=== PATIENT | female | born 1990 | race Caucasian/White ===

== ENCOUNTER 2017-02-21 04:44 | Emergency (ER) | payer SELFPAY ==
--- NOTE | 2017-02-21 04:59 | ER Document Report ---
ED GI/ - General Chief Complaint: Flank Pain Stated Complaint: BACK PAIN Time Seen by Provider: 02/21/17 04:56 Mode of Arrival: Ambulatory Information source: Patient Notes: Is a 27-year-old female who presents to the ER today for left flank pain 3 days. Patient states that it hurts worse to move. She denies any dysuria or hematuria, history of kidney stones. She admits to some fevers and chills yesterday but did not take her temperature. She denies that the pain radiates anywhere. TRAVEL OUTSIDE OF THE [place] IN LAST 30 DAYS: No - Related Data Allergies/Adverse Reactions: No Known Allergies Allergy (Verified 12/16/12 06:28) Past Medical History - General Information source: Patient - Social History Smoking Status: Current Every Day Smoker Family History: Reviewed & Not Pertinent Patient has suicidal ideation: No Patient has homicidal ideation: No Renal/ Medical History: Reports: Hx Ovarian Cysts. Denies: Hx Peritoneal Dialysis - Immunizations Hx Diphtheria, Pertussis, Tetanus Vaccination: No Review of Systems - Review of Systems Constitutional: See HPI EENT: No symptoms reported Cardiovascular: No symptoms reported Respiratory: No symptoms reported Gastrointestinal: No symptoms reported Genitourinary: See HPI Female Genitourinary: No symptoms reported Musculoskeletal: No symptoms reported Skin: No symptoms reported Hematologic/Lymphatic: No symptoms reported Neurological/Psychological: No symptoms reported Physical Exam - Vital signs Vitals: Temp Pulse Resp BP Pulse Ox 97.6 F 89 18 125/71 97 02/21/17 04:45 02/21/17 04:45 02/21/17 04:45 02/21/17 04:45 02/21/17 04:45 - Notes Notes: PHYSICAL EXAMINATION: GENERAL: uncomfortable, holding left flank, but in no acute distress. HEAD: Atraumatic, normocephalic. EYES: Pupils equal round and reactive to light, extraocular movements intact, sclera anicteric, conjunctiva are normal. NECK: Normal range of motion, supple without lymphadenopathy LUNGS: CTAB and equal. No wheezes rales or rhonchi. HEART: Regular rate and rhythm without murmurs ABDOMEN: Soft, no tenderness. No guarding, no rebound BACK: no vertebral tenderness, normal ROM GI/: left CVA tenderness EXTREMITIES: Normal range of motion, no pitting edema. No cyanosis. NEUROLOGICAL: Cranial nerves grossly intact. Normal sensory/motor exams. PSYCH: Normal mood, normal affect. SKIN: Warm, Dry, normal turgor, open and scabbed sores all over body including the face, extremities, trunk Course - Re-evaluation Re-evalutation: 02/21/17 06:15 The white count 12.3, moderate leukocytes on her urinalysis with some white blood cells. I will treat her for UTI today. There is no blood on her urinalysis indicating kidney stone. Patient is covered in sores all over her body and admits to doing meth. - Vital Signs Vital signs: Temp Pulse Resp BP Pulse Ox 97.6 F 89 18 125/71 97 02/21/17 04:45 02/21/17 04:45 02/21/17 04:45 02/21/17 04:45 02/21/17 04:45 - Laboratory Result Diagrams: 02/21/17 05:34 02/21/17 05:34 Laboratory results interpreted by me: 02/21/17 02/21/17 02/21/17 04:59 05:34 05:34 WBC 12.3 H MCH 33.6 H Absolute Neutrophils 8.3 H Glucose 114 H AST 44 H ALT 73 H Ur Leukocyte Esterase MODERATE H Discharge - Discharge Clinical Impression: multiple skin sores UTI (urinary tract infection) Qualifiers: Urinary tract infection type: site unspecified Hematuria presence: without hematuria Qualified Code(s): N39.0 - Urinary tract infection, site not specified Condition: Stable Disposition: HOME, SELF-CARE Instructions: Urinary Tract Infection ([facility]) Additional Instructions: Return immediately for any new or worsening symptoms. Follow up with primary care provider, call tomorrow to make followup appointment. Prescriptions: Ciprofloxacin HCl [Cipro 500 mg Tablet] 500 mg PO BID #20 tablet Ibuprofen [Motrin 800 mg Tablet] 800 mg PO Q8H PRN #30 tab PRN Reason:
[2017-02-21] MEDS ORDERED: KETOROLAC TROMETHAMINE 60 MG/2 ML SDV IM ONE (05:10)
[2017-02-21 05:33] LABS: APPEARANCE,URINE SLIGHTLY-CLOUDY; BILIRUBIN,URINE NEGATIVE (NEGATIVE); GLUCOSE, URINE NEGATIVE (NEGATIVE); KETONES,URINE NEGATIVE (NEGATIVE); LEUKOCYTE ESTERASE,URINE MODERATE (NEGATIVE); NITRITE,URINE NEGATIVE (NEGATIVE); PROTEIN,URINE NEGATIVE (NEGATIVE); URINE SPECIFIC GRAVITY 1.011; UROBILINOGEN,URINE NEGATIVE mg/dL (<2.0)
[2017-02-21 05:41] LABS: ABSOLUTE BASOPHILS # (AUTO) 0.1 10^3/uL (0.0-0.2); ABSOLUTE EOSINOPHILS # (AUTO) 0.2 10^3/uL (0.0-0.6); ABSOLUTE LYMPHOCYTES (AUTO) 2.6 10^3/uL (0.5-4.7); ABSOLUTE MONOCYTES (AUTO) 1.2 10^3/uL (0.1-1.4); ABSOLUTE NEUT (AUTO) 8.3 10^3/uL (1.7-8.2); BASOPHILS % (AUTO) 0.5 % (0-2); EOSINOPHILS % (AUTO) 1.6 % (0-6); HEMATOCRIT 36.7 % (36.0-47.0); HEMOGLOBIN 12.8 g/dL (12.0-15.5); HGB HCT DIFFERENCE 1.7; LYMPHOCYTES % (AUTO) 21.2 % (13-45); MEAN CORPUSCULAR HEMOGLOBIN 33.6 pg (27.0-33.4); MEAN CORPUSCULAR HGB CONC 34.8 g/dL (32.0-36.0); MEAN CORPUSCULAR VOLUME 97 fl (80-97); MONOCYTES % (AUTO) 9.4 % (3-13); RED CELL DISTRIBUTION WIDTH 12.8 % (11.5-14.0); SEGMENTED NEUTROPHILS % (AUTO) 67.3 % (42-78); WHITE BLOOD COUNT 12.3 10^3/uL (4.0-10.5)
[2017-02-21 05:55] LABS: ALANINE AMINOTRANSFERASE 73 U/L (9-52); ALBUMIN 4.2 g/dL (3.5-5.0); ALKALINE PHOSPHATASE 55 U/L (38-126); ANION GAP 10 (5-19); ASPARTATE AMINO TRANSFERASE 44 U/L (14-36); BILIRUBIN,DIRECT 0.4 mg/dL (0.0-0.4); BILIRUBIN,TOTAL 0.4 mg/dL (0.2-1.3); BLOOD UREA NITROGEN 7 mg/dL (7-20); CALCIUM 9.6 mg/dL (8.4-10.2); CARBON DIOXIDE 26 mmol/L (22-30); CHLORIDE 103 mmol/L (98-107); CREATININE RESULT 0.65 mg/dL (0.52-1.25); GLUCOSE 114 mg/dL (75-110); POTASSIUM 3.7 mmol/L (3.6-5.0); SODIUM 139.2 mmol/L (137-145); TOTAL PROTEIN 7.6 g/dL (6.3-8.2)
[2017-02-21 07:22] VITALS: BP 114/65
== END 2017-02-21 07:09 | disposition home or self-care (01) ==
LOC: ER 04:44
DX: N39.0 Urinary tract infection, site not specified (principal); L98.499 Non-pressure chronic ulcer of skin of other sites with unspecified severity; R68.83 Chills (without fever); F17.200 Nicotine dependence, unspecified, uncomplicated; Z87.442 Personal history of urinary calculi
CPT/HCPCS: 99284; 36415; 85025; 81025; 80053; 81001; J1885

== ENCOUNTER 2017-06-29 15:02 | Emergency (ER) | payer SELFPAY ==
--- NOTE | 2017-06-29 16:09 | ER Document Report ---
ED General - General Chief Complaint: Puncture Wound to Foot Stated Complaint: LEFT FOOT INJURY Time Seen by Provider: 06/29/17 15:20 Mode of Arrival: Ambulatory Information source: Patient Notes: Patient is a 27-year-old female who comes to emergency room with a major complaint of foreign body in the left heel. She also has multiple complaints about skin lesions across her body and about upper respiratory type symptoms and IV drug use. Does state her primary concern is the foreign body in the left foot heel states his been her probably 4-5 days. She stepped on a glass and she believes that is what is in there. She states that there is a patient can feel. She is attempted to pull it out herself with no luck. Patient then starts discussing wounds on her body admits to IV drug use states that she has not done methamphetamines for approximately 8 months but she does cocaine on a regular basis all of which is IV. And she also admits to sharing needles. Patient has a congested runny nose cough complaint as well think she has bronchitis. TRAVEL OUTSIDE OF THE [place] IN LAST 30 DAYS: No - HPI Patient complains to provider of: Left foreign body in heel Onset: Other - 5 days Onset/Duration: Sudden, Worse Quality of pain: Sharp Severity: Moderate Pain Level: 3 Context: Walking barefoot broken glass Associated symptoms: Other - On associated symptoms though are cough congestion runny nose. These are additional symptoms Exacerbated by: Standing, Movement, Walking Relieved by: Denies Similar symptoms previously: Yes Recently seen / treated by doctor: No Notes: Patient states she does have a history of going to the health department for sexual transmitted diseases. This is approximately 1 year ago same male partner he contracted chlamydia and patient went to health department to have treatment. - Related Data Allergies/Adverse Reactions: No Known Allergies Allergy (Verified 06/29/17 15:03) Past Medical History - General Information source: Patient Last Menstrual Period: Now - Social History Smoking Status: Current Every Day Smoker Cigarette use (# per day): Yes - 1-2 packs a day Chew tobacco use (# tins/day): No Smoking Education Provided: Yes Frequency of alcohol use: Heavy - Patient states she does also drink heavily but has cut back. Drug Abuse: Cocaine, Heroin, Methamphetamine Occupation: Unemployed Lives with: Spouse/Significant other Family History: Reviewed & Not Pertinent Patient has suicidal ideation: No Patient has homicidal ideation: No Pulmonary Medical History: Reports: Hx Bronchitis Renal/ Medical History: Reports: Hx Ovarian Cysts. Denies: Hx Peritoneal Dialysis - Immunizations Hx Diphtheria, Pertussis, Tetanus Vaccination: No Review of Systems - Review of Systems Constitutional: No symptoms reported EENT: No symptoms reported, Nose congestion, Sinus pressure Cardiovascular: No symptoms reported Respiratory: No symptoms reported Gastrointestinal: No symptoms reported Genitourinary: No symptoms reported Female Genitourinary: No symptoms reported Musculoskeletal: Other - Foreign body left foot heel Skin: Lesions, Rash Hematologic/Lymphatic: No symptoms reported Neurological/Psychological: No symptoms reported -: Yes All other systems reviewed and negative Physical Exam - Vital signs Vitals: Temp Pulse Resp BP Pulse Ox 97.9 F 114 H 18 143/94 H 98 06/29/17 15:09 06/29/17 15:09 06/29/17 15:09 06/29/17 15:09 06/29/17 15:09 Interpretation: Hypertensive, Tachycardic - General General appearance: Anxious In distress: None - HEENT Head: Normocephalic, Atraumatic Eyes: Normal Conjunctiva: Injected Tympanic membrane: Bulging. No: Normal, Hemotympanum, Injected, Loss of landmarks, Perforation, Purulent effusion, Retracted, Serous effusion, Other Sinus: Frontal, Maxillary Nasal: Purulent discharge Mouth/Lips: Normal Mucous membranes: Normal, Moist Pharynx: Post nasal drainage Neck: Normal - Respiratory Respiratory status: No respiratory distress Chest status: Nontender Breath sounds: Normal. No: Decreased air movement, Nonproductive cough, Productive cough, Rales, Rhonchi, Stridor, Wheezing, Other - Cardiovascular Rhythm: Tachycardia Murmur: No - Extremities General upper extremity: Normal inspection, Normal ROM, Other - Multiple skin lesions across the upper and lower body General lower extremity: Tender, Other - Examination patient's left heel shows there to be a foreign body appearance in the bottom of the left heel more towards the lateral side. There is an area that is approximately a centimeter with broken skin very hard callus as well with what appears to be by touch a foreign body that is embedded. It is not visualized only felt. There is extreme tenderness to palpation around the wound. There is no sign of lymphangitis at this time. Foot: Tender, Other - Look under general lower extremity, - Neurological Neuro grossly intact: Yes Cognition: Normal Orientation: AAOx4 [place] Coma Scale Eye Opening: Spontaneous [place] Coma Scale Verbal: Oriented [place] Coma Scale Motor: Obeys Commands Mario Coma Scale Total: 15 Speech: Normal - Skin Skin Temperature: Warm Skin Color: Erythema Skin irregularity: Lesion, Rash, other - Physical examination the patient externally shows she has wide range of lesions across her entire body including face of erythematous irregular boarders. Course - Vital Signs Vital signs: Temp Pulse Resp BP Pulse Ox 97.9 F 114 H 18 143/94 H 98 06/29/17 15:09 06/29/17 15:09 06/29/17 15:09 06/29/17 15:09 06/29/17 15:09 - Transfer of Care Notes: 06/29/17 17:33 As stated patient does use IV drug and she is upfront about doing this. She has states that she has not had any methamphetamine for about 8 months. She does admit openly using cocaine. She last shot was in 24 hours ago. She has these lesions as described all over her body. I informed her that this was a condition that goes along with IV drug use and that the antibiotics were used should help her. Patient was not satisfied with this answer I went in to Dr. Jefferson he came to the room and examined patient as well listening to her story. He examined all the lesions as well and came to the same conclusion since patient had an area in her back that she cannot reach from scratching was clear. He informed her we put her on antibiotics that will help with this condition as I had told her. I did the I&D and removed a small 4 mm object from the left heel. 06/29/17 17:36 06/29/17 17:39 As the procedure goes I cleaned the area with Betadine waited a few seconds and then injected 1-1/2 mL's of 1% lidocaine into the wound itself. I raised a nice large well waited approximately 3 minutes until the area was anesthetized and then took splinter forceps I grabbed hold of the piece that was sticking out of the wound and removed approximately a 4 mm piece of a dark substance. I believe it to be a piece of metal although patient swears she stepped on glass. We applied a Band-Aid to the area after removing and patient was satisfied with the procedure. Removed a 4 mm object therefore do not feel we need to re-x -ray the area. And patient wants to leave. Discharge - Discharge Clinical Impression: Impetigo any site, H/O retained foreign body fully removed, Staphylococcal infection of skin, IVDU (intravenous drug user) Condition: Good Disposition: HOME, SELF-CARE Instructions: Antibiotic Ointment Protection ([facility]), Bactroban Ointment ([facility]), Cephalexin ([facility]), Impetigo ([facility]), Soap Cleansing ([facility]), Tetanus Immunization Given ([facility]) Additional Instructions: Home and take a shower or wash all areas of the body. Keep the wound on the left heel covered and apply antibiotic cream. I have also written you for some Bactroban ointment that she may use on your lesions as well. Apply as directed. Take all of the antibiotics. I am also including a medication called Diflucan since her in 2 strong antibiotics and this will help you to stop from getting a yeast infection. As Dr. Jefferson stated this is a a staph infection caused by picking/IV drug use causing irritations under the skin. If you take all the antibiotics that should help clear up. As always he remained from IV injecting it would be much better. Should you have any concerns or problems return to ER for a recheck. Prescriptions: Cephalexin Monohydrate [Keflex 500 mg Capsule] 500 mg PO QID #40 capsule Fluconazole [Diflucan] 150 mg PO ONCE PRN #1 tablet PRN Reason: Sulfamethoxazole/Trimethoprim [Bactrim Ds Tablet] 1 each PO BID #28 tablet Forms: Elevated Blood Pressure, Smoking Cessation Education
--- NOTE | 2017-06-29 16:27 | RADIOLOGY REPORT (SQ) ---
EXAM DESCRIPTION: FOOT RIGHT COMPLETE COMPLETED DATE/TIME: 06/29/2017 4:14 pm REASON FOR STUDY: Foreign body in heel COMPARISON: 12/16/2012. NUMBER OF VIEWS: Three views. TECHNIQUE: AP, lateral and oblique radiographic images acquired of the right foot. LIMITATIONS: None. FINDINGS: MINERALIZATION: Normal. BONES: No acute fracture or dislocation. No worrisome bone lesions. JOINTS: No effusions. SOFT TISSUES: Posterior soft tissue swelling. On the oblique view there is a linear radiopaque forei gn object measuring 4 mm. OTHER: No other significant finding. IMPRESSION: 4 MM RADIOPAQUE FOREIGN OBJECT IN THE POSTERIOR SOFT TISSUES WITH ASSOCIATED SOFT TISSUE SWELLING. NO SIGNIFICANT BONY FINDINGS. TECHNICAL DOCUMENTATION: JOB ID: [id number] [employer]- All Rights Reserved
[2017-06-29] MEDS ORDERED: LIDOCAINE 1% INJ-PF (10 MG/ML) 30 ML SDV INJ ONE (16:29)
[2017-06-29] MEDS ORDERED: SULFAMETHOXAZOLE/TRIMETHOPRIM 800-160 MG TABLET PO ONE (17:34)
[2017-06-29 18:10] VITALS: BP 140/88
== END 2017-06-29 17:55 | disposition home or self-care (01) ==
LOC: ER 15:02 → EEVIPCON 15:02 → ER 17:55
PROC: 0HCNXZZ Extirpation of Matter from Left Foot Skin, External Approach (ICD-10-PCS; principal; 2017-06-29)
DX: L01.00 Impetigo, unspecified (principal); B95.7 Other staphylococcus as the cause of diseases classified elsewhere; S91.342A Puncture wound with foreign body, left foot, initial encounter; R09.81 Nasal congestion; R09.89 Other specified symptoms and signs involving the circulatory and respiratory systems; R05 Cough; F14.10 Cocaine abuse, uncomplicated; W22.8XXA Striking against or struck by other objects, initial encounter; F17.210 Nicotine dependence, cigarettes, uncomplicated
CPT/HCPCS: 99283; 73630; 10120; J3490

== ENCOUNTER 2018-05-11 14:05 | Emergency (ER) | payer SELFPAY ==
[2018-05-11 14:38] VITALS: BP 96/70
--- NOTE | 2018-05-11 15:15 | ER Document Report ---
ED Medical Screen (RME) - General Chief Complaint: Abscess Stated Complaint: EAR PAIN Time Seen by Provider: 05/11/18 15:13 Notes: 28 years old female presents today with an unexplained rash which is spreading, involving head neck shoulder and chest. She states that she she has IV needle to use IV drugs with her boyfriend and her girlfriend too. Apparently the boyfriend was diagnosed with endocarditis, versus 10 bacteria which she does not know. He is on vancomycin IV. She was concerned she must be having the same resistant organism therefore presented to the ED. TRAVEL OUTSIDE OF THE [place] IN LAST 30 DAYS: No - Related Data Allergies/Adverse Reactions: No Known Allergies Allergy (Verified 05/11/18 14:07) Past Medical History Pulmonary Medical History: Reports: Hx Bronchitis Renal/ Medical History: Reports: Hx Ovarian Cysts. Denies: Hx Peritoneal Dialysis - Immunizations Hx Diphtheria, Pertussis, Tetanus Vaccination: No Physical Exam - Vital signs Vitals: Temp Pulse Resp BP Pulse Ox 98.6 F 95 16 96/70 L 100 05/11/18 14:34 05/11/18 14:34 05/11/18 14:34 05/11/18 14:34 05/11/18 14:34 Course - Vital Signs Vital signs: Temp Pulse Resp BP Pulse Ox 98.6 F 95 16 96/70 L 100 05/11/18 14:34 05/11/18 14:34 05/11/18 14:34 05/11/18 14:34 05/11/18 14:34
[2018-05-11 15:45] LABS: ABSOLUTE BASOPHILS # (AUTO) 0.1 10^3/uL (0.0-0.2); ABSOLUTE EOSINOPHILS # (AUTO) 0.4 10^3/uL (0.0-0.6); ABSOLUTE LYMPHOCYTES (AUTO) 3.2 10^3/uL (0.5-4.7); ABSOLUTE MONOCYTES (AUTO) 0.8 10^3/uL (0.1-1.4); ABSOLUTE NEUT (AUTO) 5.5 10^3/uL (1.7-8.2); BASOPHILS % (AUTO) 0.8 % (0-2); EOSINOPHILS % (AUTO) 3.7 % (0-6); HEMATOCRIT 40.8 % (36.0-47.0); HEMOGLOBIN 13.9 g/dL (12.0-15.5); LYMPHOCYTES % (AUTO) 32.4 % (13-45); MEAN CORPUSCULAR HEMOGLOBIN 32.1 pg (27.0-33.4); MEAN CORPUSCULAR HGB CONC 34.1 g/dL (32.0-36.0); MEAN CORPUSCULAR VOLUME 94 fl (80-97); MONOCYTES % (AUTO) 8.1 % (3-13); PLATELET COUNT 285 10^3/uL (150-450); RED BLOOD COUNT 4.34 10^6/uL (3.72-5.28); RED CELL DISTRIBUTION WIDTH 12.8 % (11.5-14.0); TOTAL CELLS COUNTED % (AUTO) 100 %
[2018-05-11] MEDS ORDERED: CEFTRIAXONE INJ 1000 MG VIAL IM ONE (16:10)
[2018-05-11] MEDS ORDERED: LIDOCAINE 1% INJ-PF (10 MG/ML) 30 ML SDV INJ ONE (16:10)
--- NOTE | 2018-05-11 16:14 | ER Document Report ---
ED General - General Chief Complaint: Abscess Stated Complaint: EAR PAIN Time Seen by Provider: 05/11/18 15:13 TRAVEL OUTSIDE OF THE [place] IN LAST 30 DAYS: No - HPI Notes: Patient is a 28-year-old female with an active history of IV drug abuse who presents to the ED complaining of red painful lesions on her face, neck, left ear, arms, and chest that have been intermittent over the past 1-2 years. Patient states that she has been on multiple antibiotics, but only had improvement with what other medicine she had when she was here in June. Patient states that her current lesions to her head and neck area developed over the last couple days. Patient is otherwise eating and drinking without any difficulties. She is urinating normally and having normal bowel movements. Patient states that she wanted to catch these issues sooner than later as her BF was on Vanc for endocarditis. Denies drug allergies. Denies any headache, fever, neck pain, changes in vision/speech/mentation/hearing, URI, sore throat, chest pain, palpitations, syncope, cough, shortness of breath, wheeze, dyspnea, abdominal pain, nausea/vomiting/diarrhea, urinary retention, dysuria, hematuria , loss of control of bowel or bladder, numbness/tingling, muscle paralysis/ weakness. - Related Data Allergies/Adverse Reactions: No Known Allergies Allergy (Verified 05/11/18 14:07) Past Medical History - Social History Smoking Status: Current Every Day Smoker Frequency of alcohol use: Occasional Drug Abuse: Other Family History: Reviewed & Not Pertinent Patient has suicidal ideation: No Patient has homicidal ideation: No Pulmonary Medical History: Reports: Hx Bronchitis Renal/ Medical History: Reports: Hx Ovarian Cysts. Denies: Hx Peritoneal Dialysis - Immunizations Hx Diphtheria, Pertussis, Tetanus Vaccination: No Review of Systems - Review of Systems -: Yes All other systems reviewed and negative Physical Exam - Vital signs Vitals: Temp Pulse Resp BP Pulse Ox 98.6 F 95 16 96/70 L 100 05/11/18 14:34 05/11/18 14:34 05/11/18 14:34 05/11/18 14:34 05/11/18 14:34 - Notes Notes: PHYSICAL EXAMINATION: GENERAL: Well-appearing, well-nourished and in no acute distress. A&Ox4. Answers questions appropriately. HEAD: Atraumatic, normocephalic. EYES: Pupils equal round and reactive to light, extraocular movements intact, sclera anicteric, conjunctiva are normal. ENT: EAC clear b/l. TM's intact b/l without erythema, fluid, or perforation. Nares patent and without discharge. oropharynx clear without exudates. No tonsilar hypertrophy or erythema. Moist mucous membranes. No sinus tenderness. NECK: Normal range of motion, supple without lymphadenopathy LUNGS: Breath sounds clear to auscultation bilaterally and equal. No wheezes rales or rhonchi. HEART: Regular rate and rhythm without murmurs, rubs, gallops. ABDOMEN: Soft, nontender, nondistended abdomen. No guarding, no rebound. No masses appreciated. Normal bowel sounds present. No CVA tenderness bilaterally. Musculoskeletal: FROM to passive/active. Strength 5+/5. Extremities: No cyanosis, clubbing, or edema b/l. Peripheral pulses 2+. Capillary refill less than 3 seconds. NEUROLOGICAL: Cranial nerves grossly intact. Normal speech, normal gait. Normal sensory, motor exams PSYCH: Normal mood, normal affect. SKIN: there are multiple erythemic macular areas to the face, neck, left ear, chest, and arms b/l. There is no induration or fluctuance with these lesions. No streaks or purulence noted. + mild tenderness associated. Course - Re-evaluation Re-evalutation: 05/11/18 16:13 Patient is an afebrile, well-hydrated, 28-year-old female who presents to the ED with cellulitic lesions, possible MRSA involvement. Vitals are acceptable without any significant tachycardia, tachypnea, or hypoxia. PE is otherwise unremarkable. I did have Dr. Gregory evaluate the patient as well who agrees with assessment and plan. No labs or imaging warranted at this time. Patient is nontoxic-appearing and is tolerating p.o. without difficulties. Wound culture was obtained at triage. We will send her home with a prescription for Keflex and Bactrim. We suspect that her issues stem from IV drug abuse. Also send her home with a prescription for mupirocin. Conservative measures otherwise for symptoms. No incision and drainage is warranted at this time. Recheck with PCM in 2-3 days. Return to the ED with any worsening/concerning symptoms otherwise as reviewed in discharge. Patient is in agreement. - Vital Signs Vital signs: Temp Pulse Resp BP Pulse Ox 98.6 F 95 16 96/70 L 100 05/11/18 14:34 05/11/18 14:34 05/11/18 14:34 05/11/18 14:34 05/11/18 14:34 - Laboratory Result Diagrams: 05/11/18 15:20 Discharge - Discharge Clinical Impression: Cellulitis Qualifiers: Site of cellulitis: unspecified site Qualified Code(s): L03.90 - Cellulitis, unspecified Condition: Stable Disposition: HOME, SELF-CARE Instructions: Cephalexin ([facility]), Trimethoprim-Sulfa ([facility]), Cellulitis ([facility]) Additional Instructions: Keep the skin clean Wash with soap and water Tylenol/ibuprofen if needed Triple antibiotic ointment daily Take medication as directed Monitor for any worsening symptoms Stop using IV drugs (this will help prevent these skin infections) Recheck with your PCM in 2-3 days Consider consult with Dermatology for ongoing/worsening symptoms Return to the ED with any worsening symptoms and/or development of fever, headache, chest pain, palpitations, syncope, shortness of breath, trouble breathing, abdominal pain, n/v/d, abscess, purulent discharge, red streaks, worsening swelling, or other worsening symptoms that are concerning to you. Prescriptions: Cephalexin Monohydrate [Keflex 500 mg Capsule] 500 mg PO QID #40 capsule Sulfamethoxazole/Trimethoprim [Bactrim Ds Tablet] 1 each PO BID #28 tablet Forms: Smoking Cessation Education Referrals: DARIEN PARKER DO [ACTIVE STAFF] - Follow up as needed
== END 2018-05-11 16:48 | disposition home or self-care (01) ==
LOC: ER 14:05
DX: L03.211 Cellulitis of face (principal); H60.12 Cellulitis of left external ear; L03.221 Cellulitis of neck; L03.119 Cellulitis of unspecified part of limb; L03.313 Cellulitis of chest wall; F19.10 Other psychoactive substance abuse, uncomplicated; F17.200 Nicotine dependence, unspecified, uncomplicated
CPT/HCPCS: 99283; 96372; 36415; 85025; 87070; J3490; J0696

== ENCOUNTER 2018-11-15 13:33 | Inpatient (IN) | payer SELFPAY ==
[2018-11-15] MEDS ORDERED: MUPIROCIN 2% OINTMENT 22 GM TP ONE (14:14)
[2018-11-15] MEDS ORDERED: VANCOMYCIN HCL INJ 1000 MG VIAL IV ONE (14:14)
--- NOTE | 2018-11-15 15:21 | RADIOLOGY REPORT (SQ) ---
"EXAM DESCRIPTION: CT FACIAL AREA WITH COMPLETED DATE/TIME: 11/15/2018 3:04 pm REASON FOR STUDY: facial/orbital cellulitis COMPARISON: 2012 TECHNIQUE: Post contrast images through the facial bones and orbits windowed for bone and soft tissu e. Additional coronal and sagittal reconstructed images reviewed. All images stored on PACS. All CT scanners at this facility use dose modulation, iterative reconstruction, and/or weight based d osing when appropriate to reduce radiation dose to as low as reasonably achievable (ALARA). [facility]: Dose Right [facility]: CareDose [facility]: Dose Right [facility]: Teradose 4D [facility]: AQH CONTRAST TYPE AND DOSE: contrast/concentration: Isovue 350.00 mg/ml; Total Contrast Delivered: 75.0 ml; Total Saline Delivered: 55.0 ml RENAL FUNCTION: None required. The patient is less than 50 years old. RADIATION DOSE: CT Rad equipment meets quality standard of care and radiation dose reduction techniq ues were employed. CTDIvol: 30.4 mGy. DLP: 562 mGy-cm. . LIMITATIONS: None. FINDINGS: FACIAL BONES: No fracture or bone lesion. ORBITS: Intact. No fracture. Symmetric intact globes and retroorbital soft tissues. PARANASAL SINUSES: Fluid in the right frontal sinus and nasofrontal recess. SOFT TISSUES: Diffuse subcutaneous inflammation both sides of the face. INFERIOR BRAIN: Limited view. No acute findings. OTHER: No other significant finding. IMPRESSION: 1. Diffuse cellulitis. No abscess. 2. Right frontal sinusitis. TECHNICAL DOCUMENTATION: JOB ID: [id number] Quality ID # [id number]: Final reports with documentation of one or more dose reduction techniques (e.g., Au tomated exposure control, adjustment of the mA and/or kV according to patient size, use of iterative reconstruction technique) 2010 [employer] | [employer]- All Rights Reserved Reading location - IP/workstation name: [email or web address]"
[2018-11-15] MEDS ORDERED: NORMAL SALINE 1000 ML 1,000 ML IV ONE (16:03)
[2018-11-15 16:15] LABS: ABSOLUTE EOSINOPHILS # (AUTO) 0.2 10^3/uL (0.0-0.6); ABSOLUTE LYMPHOCYTES (AUTO) 1.9 10^3/uL (0.5-4.7); ABSOLUTE MONOCYTES (AUTO) 0.7 10^3/uL (0.1-1.4); ABSOLUTE NEUT (AUTO) 6.9 10^3/uL (1.7-8.2); BASOPHILS % (AUTO) 0.2 % (0-2); EOSINOPHILS % (AUTO) 2.3 % (0-6); HEMATOCRIT 39.2 % (36.0-47.0); HEMOGLOBIN 13.7 g/dL (12.0-15.5); LYMPHOCYTES % (AUTO) 19.1 % (13-45); MEAN CORPUSCULAR HEMOGLOBIN 31.7 pg (27.0-33.4); MEAN CORPUSCULAR VOLUME 91 fl (80-97); MONOCYTES % (AUTO) 7.6 % (3-13); PLATELET COUNT 219 10^3/uL (150-450); RED BLOOD COUNT 4.34 10^6/uL (3.72-5.28); RED CELL DISTRIBUTION WIDTH 12.3 % (11.5-14.0); SEGMENTED NEUTROPHILS % (AUTO) 70.8 % (42-78); TOTAL CELLS COUNTED % (AUTO) 100 %; WHITE BLOOD COUNT 9.8 10^3/uL (4.0-10.5)
--- NOTE | 2018-11-15 16:32 | ER Document Report ---
ED General - General Chief Complaint: Facial Swelling Stated Complaint: FACIAL SWELLING/INFECTION Time Seen by Provider: 11/15/18 14:12 Primary Care Provider: ARI PURDY [Primary Care Provider] - Follow up as needed TRAVEL OUTSIDE OF THE [place] IN LAST 30 DAYS: No - HPI Notes: Patient is a 28-year-old female with a history of IV drug abuse with her last use being a few days ago who presents the emergency department complaining of an infection to her face and swelling that is significantly worsened over the last couple days. Patient states that she has had issues with scabs and infection for years in her face, but never this bad. Patient does have a history of MRSA. Patient states that she is otherwise eating and drinking without difficulty. She is urinating normally and having normal bowel movements. Denies drug allergies. She has no other concerns or complaints. Denies any headache, fever, head injury, neck pain, drooling, hoarseness, URI, sore throat, chest pain, palpitations, syncope, cough, shortness of breath, wheeze, dyspnea, abdominal pain, nausea/vomiting/diarrhea, urinary retention, dysuria, hematuria. - Related Data Allergies/Adverse Reactions: No Known Allergies Allergy (Verified 05/11/18 14:07) Past Medical History - Social History Smoking Status: Current Every Day Smoker Frequency of alcohol use: None Drug Abuse: None Family History: Reviewed & Not Pertinent Patient has suicidal ideation: No Patient has homicidal ideation: No Pulmonary Medical History: Reports: Hx Bronchitis Renal/ Medical History: Reports: Hx Ovarian Cysts. Denies: Hx Peritoneal Dialysis - Immunizations Hx Diphtheria, Pertussis, Tetanus Vaccination: No Review of Systems - Review of Systems -: Yes All other systems reviewed and negative Physical Exam - Vital signs Vitals: Temp Pulse Resp BP Pulse Ox 97.9 F 128 H 18 128/60 H 100 11/15/18 13:51 11/15/18 13:51 11/15/18 13:51 11/15/18 13:51 11/15/18 13:51 - Notes Notes: PHYSICAL EXAMINATION: GENERAL: Well-appearing, well-nourished and in no acute distress. HEAD: Atraumatic, normocephalic. EYES: Pupils equal round and reactive to light, extraocular movements intact, sclera anicteric, conjunctiva are normal. Non-tender to palp of the orbits. Mild erythema to the rt inferior orbital area. Face/Skin: extensive scabbing b/l lateral face with warmth and erythema associated. + mild tenderness w/o obvious fluctuance. ENT: Nares patent and without discharge. oropharynx clear without exudates. No tonsilar hypertrophy or erythema. Moist mucous membranes. NECK: Normal range of motion, supple without lymphadenopathy LUNGS: Breath sounds clear to auscultation bilaterally and equal. No wheezes rales or rhonchi. HEART: Regular rate and rhythm without murmurs, rubs, gallops. ABDOMEN: Soft, nontender, nondistended abdomen. No guarding, no rebound. BS present. Musculoskeletal: FROM to passive/active. Strength 5+/5. Extremities: No cyanosis, clubbing, or edema b/l. Peripheral pulses 2+. Capillary refill less than 3 seconds. NEUROLOGICAL: Normal speech, normal gait. PSYCH: Normal mood, normal affect. SKIN: see above. Course - Re-evaluation Re-evalutation: 11/15/18 16:53 Patient is an afebrile 28-year-old female who presents emergency department with suspected MRSA cellulitis extensively on both sides of her face. Vitals are currently acceptable although she does have some mild tachycardia. PE is otherwise unremarkable. She is nontoxic-appearing. She is able to tolerate p.o. without difficulty. Patient already has been started on vancomycin. CT scan shows cellulitis of the face without evidence of abscess. I did speak with our hospitalist, Dr. Blackwell, who accepted patient to medical floor. - Vital Signs Vital signs: Temp Pulse Resp BP Pulse Ox 97.7 F 116 H 18 120/86 H 97 11/15/18 16:38 11/15/18 16:38 11/15/18 16:38 11/15/18 16:38 11/15/18 16:38 - Laboratory Result Diagrams: 11/15/18 14:46 11/15/18 14:46 Laboratory results interpreted by me: 11/15/18 14:46 Sodium 136.3 L Chloride 97 L ALT 74 H Discharge - Discharge Clinical Impression: Cellulitis of face Condition: Stable Disposition: ADMITTED INPATIENT Admitting Provider: Rosalva (Hospitalist) Unit Admitted: Medical Floor Referrals: LOCALMD,NO [Primary Care Provider] - Follow up as needed
[2018-11-15 16:34] LABS: ALANINE AMINOTRANSFERASE 74 U/L (9-52); ALBUMIN 4.1 g/dL (3.5-5.0); ALKALINE PHOSPHATASE 64 U/L (38-126); ANION GAP 12 (5-19); ASPARTATE AMINO TRANSFERASE 36 U/L (14-36); BILIRUBIN,DIRECT 0.2 mg/dL (0.0-0.4); BILIRUBIN,TOTAL 0.6 mg/dL (0.2-1.3); BLOOD UREA NITROGEN 9 mg/dL (7-20); CALCIUM 9.2 mg/dL (8.4-10.2); CARBON DIOXIDE 27 mmol/L (22-30); CHLORIDE 97 mmol/L (98-107); GLUCOSE 103 mg/dL (75-110); POTASSIUM 3.7 mmol/L (3.6-5.0); SODIUM 136.3 mmol/L (137-145); TOTAL PROTEIN 7.2 g/dL (6.3-8.2)
[2018-11-15] MEDS ORDERED: VANCOMYCIN HCL 0 MG in DEXTROSE 5%-WATER 250 ML IV NR (18:00)
--- NOTE | 2018-11-15 18:08 | PDOC H&P ---
History of Present Illness Admission Date/PCP: 11/15/18 16:58 Patient complains of: facial swelling History of Present Illness: CHELSEA WEEKS is a 28 year old female with no significant PMH aside form prior multiple facial cellulitis and polysubstance abuse who presented with facial swelling and weeping. She says she has been dealing with recurrent cellulitis for the past 4-5 yrs and had recurrent cellulitis which usually starts on the left preauricular area. She says it has cleared up for 6 months then had recurrence of a pimple-like lesion on the same area a week ago. This progressed to a confluent erythematous patch and developed weeping and crusting. She says she also noticed the same type of lesion on the right side. She denies fever or chills. Denies chest pain or SOB. She admits to using IV heroin and last use was 2 days ago. She also says she uses methamphetamine and cocaine occasionally. She did express she wants to substance abuse/rehab programs. Past Medical History Pulmonary Medical History: Reports: Bronchitis Social History Smoking Status: Current Every Day Smoker Family History Family History: Reviewed & Not Pertinent Parental Family History Reviewed: Yes - no premature CAD Children Family History Reviewed: No Sibling(s) Family History Reviewed.: No Medication/Allergy Allergies/Adverse Reactions: No Known Allergies Allergy (Verified 05/11/18 14:07) Physical Exam Vital Signs: Temp Pulse Resp BP Pulse Ox 97.7 F 116 H 18 120/86 H 97 11/15/18 16:38 11/15/18 16:38 11/15/18 16:38 11/15/18 16:38 11/15/18 16:38 Intake & Output 11/14/18 11/15/18 11/16/18 06:59 06:59 06:59 Weight 143 lb 15.39 oz Results Laboratory Results: 11/15/18 14:46 11/15/18 14:46 11/15/18 11/15/18 11/15/18 14:46 14:46 14:46 WBC 9.8 RBC 4.34 Hgb 13.7 Hct 39.2 MCV 91 MCH 31.7 MCHC 35.0 RDW 12.3 Plt Count 219 Seg Neutrophils % 70.8 Lymphocytes % 19.1 Monocytes % 7.6 Eosinophils % 2.3 Basophils % 0.2 Absolute Neutrophils 6.9 Absolute Lymphocytes 1.9 Absolute Monocytes 0.7 Absolute Eosinophils 0.2 Absolute Basophils 0.0 Sodium 136.3 L Potassium 3.7 Chloride 97 L Carbon Dioxide 27 Anion Gap 12 BUN 9 Creatinine 0.56 Est GFR ( Amer) > 60 Est GFR (Non-Af Amer) > 60 Glucose 103 Calcium 9.2 Total Bilirubin 0.6 AST 36 ALT 74 H Alkaline Phosphatase 64 Total Protein 7.2 Albumin 4.1 Serum HCG, Qual NEGATIVE Impressions: Facial Bones CT 11/15/18 14:15 IMPRESSION: 1. Diffuse cellulitis. No abscess. 2. Right frontal sinusitis. Assessment and Plan - Diagnosis (1) Cellulitis of face Is this a current diagnosis for this admission?: Yes Plan: Will have patient on IV vancomycin. Blood and wound cultures. Will also order for MRSA surveillance culture. (2) Polysubstance abuse Is this a current diagnosis for this admission?: Yes Plan: Patient admits to using IV heroin, methamphetamine and cocaine. Counseled in length. She did express she is thinking about pursuing substance abuse rehab programs.
[2018-11-15 18:14] LABS: APPEARANCE,URINE CLOUDY; BILIRUBIN,URINE NEGATIVE (NEGATIVE); COLOR,URINE YELLOW; GLUCOSE, URINE NEGATIVE (NEGATIVE); KETONES,URINE TRACE mg/dL (NEGATIVE); LEUKOCYTE ESTERASE,URINE NEGATIVE (NEGATIVE); NITRITE,URINE NEGATIVE (NEGATIVE); PROTEIN,URINE NEGATIVE (NEGATIVE); URINE SPECIFIC GRAVITY 1.011; UROBILINOGEN,URINE NEGATIVE mg/dL (<2.0)
[2018-11-15 18:26] LABS: URINE BARBITURATES SCREEN NEGATIVE; URINE BENZODIAZEPINES SCREEN NEGATIVE; URINE COCAINE SCREEN UNCONFIRMED POSITIVE; URINE MARIJUANA (THC) SCREEN NEGATIVE; URINE METHADONE SCREEN NEGATIVE; URINE PHENCYCLIDINE SCREEN NEGATIVE
[2018-11-15] MEDS: VANCOMYCIN HCL 750 MG in DEXTROSE 5%-WATER 250 ML IV SCH (22:51)
[2018-11-15] MEDS: HEPARIN SOD (PORCINE) 5,000 UNIT/ML 1 ML SYRINGE SUBCUT SCH (22:51)
[2018-11-16] MEDS: VANCOMYCIN HCL 750 MG in DEXTROSE 5%-WATER 250 ML IV SCH ×2 (06:05→14:24)
[2018-11-16] MEDS: HEPARIN SOD (PORCINE) 5,000 UNIT/ML 1 ML SYRINGE SUBCUT SCH ×2 (11:08→22:00)
--- NOTE | 2018-11-16 14:11 | PDOC PROGRESS REPORT ---
Subjective Progress Note for:: 11/16/18 Subjective:: This is 28 years old female patient with no significant past medical history except for polysubstance abuse and recurrent cellulitis of the face. She presented with one-week history of fascial swelling and tenderness bilaterally on her cheeks which started as a small pimple which later become erythematous macule, weeping lesion. Patient tried topical antibiotics to no avail. Her CT scan of the face shows diffuse cellulitis without fluid collection. Due to her extensive cellulitis involving the face and its proximity to the brain I think it is appropriate to admit this patient and treat her with IV antibiotics. Currently patient is getting vancomycin. Her urine toxicology is positive for marijuana and cocaine. Patient also admitted that she is using IV heroin. Reason For Visit: FACIAL CELLULITIS Physical Exam Vital Signs: Temp Pulse Resp BP Pulse Ox 97.6 F 108 H 20 130/77 H 98 11/16/18 11:21 11/16/18 11:21 11/16/18 11:21 11/16/18 11:21 11/16/18 11:21 Intake & Output 11/15/18 11/16/18 11/17/18 06:59 06:59 06:59 Intake Total 900 250 Balance 900 250 Weight 66.2 kg General appearance: PRESENT: no acute distress Head exam: PRESENT: other - Bilateral cellulitis involving the her face some crusting and erythema. Eye exam: PRESENT: conjunctiva pink, EOMI, PERRLA. ABSENT: scleral icterus Ear exam: PRESENT: normal external ear exam Mouth exam: PRESENT: moist, tongue midline Neck exam: ABSENT: carotid bruit, JVD, lymphadenopathy, thyromegaly Respiratory exam: PRESENT: clear to auscultation salomón. ABSENT: rales, rhonchi, wheezes Cardiovascular exam: PRESENT: RRR. ABSENT: diastolic murmur, rubs, systolic murmur Pulses: PRESENT: normal dorsalis pedis pul Vascular exam: PRESENT: normal capillary refill GI/Abdominal exam: PRESENT: normal bowel sounds, soft. ABSENT: distended, guarding, mass, organolmegaly, rebound, tenderness Rectal exam: PRESENT: deferred Extremities exam: PRESENT: full ROM. ABSENT: calf tenderness, clubbing, pedal edema Neurological exam: PRESENT: alert, awake, oriented to person, oriented to place, oriented to time, oriented to situation, CN II-XII grossly intact. ABSENT: motor sensory deficit Psychiatric exam: PRESENT: appropriate affect, normal mood. ABSENT: homicidal ideation, suicidal ideation Skin exam: PRESENT: dry, intact, warm. ABSENT: cyanosis, rash Results Laboratory Results: 11/15/18 14:46 11/15/18 14:46 11/15/18 11/15/18 11/15/18 14:46 14:46 14:46 WBC 9.8 RBC 4.34 Hgb 13.7 Hct 39.2 MCV 91 MCH 31.7 MCHC 35.0 RDW 12.3 Plt Count 219 Seg Neutrophils % 70.8 Lymphocytes % 19.1 Monocytes % 7.6 Eosinophils % 2.3 Basophils % 0.2 Absolute Neutrophils 6.9 Absolute Lymphocytes 1.9 Absolute Monocytes 0.7 Absolute Eosinophils 0.2 Absolute Basophils 0.0 Sodium 136.3 L Potassium 3.7 Chloride 97 L Carbon Dioxide 27 Anion Gap 12 BUN 9 Creatinine 0.56 Est GFR ( Amer) > 60 Est GFR (Non-Af Amer) > 60 Glucose 103 Lactic Acid Calcium 9.2 Total Bilirubin 0.6 AST 36 ALT 74 H Alkaline Phosphatase 64 Total Protein 7.2 Albumin 4.1 Serum HCG, Qual NEGATIVE Urine Color Urine Appearance Urine pH Ur Specific [place] Urine Protein Urine Glucose (UA) Urine Ketones Urine Blood Urine Nitrite Ur Leukocyte Esterase Urine WBC (Auto) Urine RBC (Auto) 11/15/18 11/15/18 14:56 18:36 WBC RBC Hgb Hct MCV MCH MCHC RDW Plt Count Seg Neutrophils % Lymphocytes % Monocytes % Eosinophils % Basophils % Absolute Neutrophils Absolute Lymphocytes Absolute Monocytes Absolute Eosinophils Absolute Basophils Sodium Potassium Chloride Carbon Dioxide Anion Gap BUN Creatinine Est GFR ( Amer) Est GFR (Non-Af Amer) Glucose Lactic Acid 0.9 Calcium Total Bilirubin AST ALT Alkaline Phosphatase Total Protein Albumin Serum HCG, Qual Urine Color YELLOW Urine Appearance CLOUDY Urine pH 6.0 Ur Specific [place] 1.011 Urine Protein NEGATIVE Urine Glucose (UA) NEGATIVE Urine Ketones TRACE H Urine Blood NEGATIVE Urine Nitrite NEGATIVE Ur Leukocyte Esterase NEGATIVE Urine WBC (Auto) 4 Urine RBC (Auto) 2 Impressions: Facial Bones CT 11/15/18 14:15 IMPRESSION: 1. Diffuse cellulitis. No abscess. 2. Right frontal sinusitis. Assessment and Plan - Diagnosis (1) Cellulitis of face Is this a current diagnosis for this admission?: Yes Plan: Patient has history of recurrent cellulitis. Currently she has been getting vancomycin IV. (2) Polysubstance abuse Is this a current diagnosis for this admission?: Yes Plan: Patient confessed that she has been shooting heroin. I strongly advised her and counseled her that she need to stop using IV drugs. She voices agreement. She is going to be worked up for hepatitis panel and HIV. (3) Tobacco dependence Is this a current diagnosis for this admission?: Yes Plan: Recent counseled and encouraged to quit smoking.
[2018-11-16] MEDS ORDERED: VANCOMYCIN HCL INJ 500 MG VIAL IV PRN (23:14)
[2018-11-16] MEDS ORDERED: VANCOMYCIN HCL INJ 500 MG VIAL ONE (23:24)
[2018-11-16] MEDS: VANCOMYCIN HCL 1,250 MG in DEXTROSE 5%-WATER 250 ML IV SCH (23:44)
[2018-11-17] MEDS: VANCOMYCIN HCL 1,250 MG in DEXTROSE 5%-WATER 250 ML IV SCH ×3 (05:38→23:56)
[2018-11-17] MEDS: HEPARIN SOD (PORCINE) 5,000 UNIT/ML 1 ML SYRINGE SUBCUT SCH ×2 (09:45→23:57)
[2018-11-17] MEDS ORDERED: LORAZEPAM INJ 2 MG/1 ML VIAL IV PRN (11:20)
[2018-11-17] MEDS ORDERED: DIAZEPAM 5 MG TABLET PO ONE (11:21)
--- NOTE | 2018-11-17 12:47 | PSYCHOLOGICAL NOTE ---
Psych Note - Psych Note Date seen by psych provider: 11/16/18 Time seen by psych provider: 08:58 - Chart review at 0858. Evaluation from 1245- 1307. [facility] referral 11/17/18 at 0649. Psych Note: Reason for Consult: Substance Abuse Resources Contact Permissions: She mentioned friend Gold Patient is a 28 year old female who presented to the ED 11/15/18 for face infection/swelling, with Hx of scabies/MRSA/recurrent cellulitis the last 4-5 years but never to this severity and history of IV drug use. She was a same day admit for cellulitis of face (weeping and crusting) and polysubstance use (UDS positive for opiates, methamphetamine and cocaine). A psychiatric consult was ordered due to patient interest in substance abuse rehabilitation. Patient stated she has been using heroin since age 16 but was sober during pregnancies. 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 She stated she "smokes and shoots up and prefers to shoot up cocaine." Medical documentation noted she stated she had shot up heroin 2 days prior to ED arrival and uses methamphetamine occasionally. She acknowledged she was just released from shelter a couple weeks ago after serving 4 months from possession of cocaine and xanax, as well as absconded probation from 2016. She stated "she had finally gone to court to take care of it." She reported she is currently on Probation and had been accepted to a 1 year work program in the [facility] but did not want to be that far from her children (ages 6 and 10, reside with their father and his current girlfriend in [place]). She stated she was interested in detox and a chcf house but wanted to stay close since she now has to work her way back into her children's lives. She stated she heard about something in [place] but still would like something closer than that even. She denied previous treatment. Discussed harm reduction in terms of use since being out of shelter, not using as much as she had been since she had been detoxed and sober while in shelter. She acknowledged April 2018 was her third overdose and if the dealer would not have had Narcan with him she would have likely . She stated she has family planning Medicaid, no ID (having trouble sine she does not have bills in her name) and no car. She noted staying with a friend named Gold and having an Aunt locally. She denied SI/HI. She discussed and processed her thoughts, feelings, concerns and frustration with where she is in life with continued drug use, having to work her way back into her children's lives, and her perceived treatment from medical staff. She was open and honest while also being true to her emotions (tearful at appropriate times). Psychoeducated patient about [facility] for voluntary SA treatment, as well as the [facility] (she agreed to linkage and provided correct contact information regarding address and phone number). Patient was alert and oriented to self, person, place, time and situation. Mood was depressed with congruent affect as evidenced by being tearful and crying (at appropriate times). She denied SI/HI. She showed future/forward/goal oriented thinking when she mentioned she had reached out to her PO so they could make a visit and wanting SA treatment to get clean and get back into her children's lives. She did not appear to be responding to internal stimuli as evidenced by fair eye contact, answering questions appropriately when addressed, staying on topic, carrying on dialogue conversation and being engaged in evaluation. Thought processes were linear and organized as well as future/forward/goal oriented. Conversational speech was within normal limits for rate, tone and prosody. Intellectual abilities are estimated to be average. Insight, judgment and impulse control were fair as evidenced by being open and engaged in evaluation with desire for SA treatment. Diagnosis: Polysubstance Use 304.00 (F11.20) Opioid Use Disorder, Severe 304.40 (F15.20) Methamphetamine Use Disorder, Severe 304.20 (F14.20) Cocaine Use Disorder, Severe V62.5 (Z65.3) Problem Related to Other Legal Circumstances (served 4 months shelter time, on Probation) 311 (F32.9) Unspecified Depressive Disorder Impression/Plan: Patient is cleared from acute psychiatric services. Consult was for patient's interest in SA recovery/rehab. She denied SI/HI and no observed psychosis. She identified she wanted detox and then chcf house living. She was verbally made aware of [facility] for assistance with voluntary SA treatment. 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 and documented [facility] for outpatient MH/SA treatment. Patient made aware of [facility], gave verbal consent to provide linkage and provided good phone number/address as contact. Made referral to Isael at [facility] (technology risk intern 11/17/18, he was made aware she was still inpatient medical and room number). Discussed harm reduction with patient about amount of use current versus prior to shelter since having been detoxed and sober while in shelter. Consulted with Dr. Yu regarding the management and care of patient. Attending hospitalist made aware of recommendations.
[2018-11-17] MEDS: DIAZEPAM 5 MG TABLET PO SCH ×2 (14:00→23:56)
[2018-11-17] MEDS ORDERED: NICOTINE 21 MG/24 HR PATCH.TD24 TD PRN (14:17)
--- NOTE | 2018-11-17 14:48 | PDOC PROGRESS REPORT ---
Subjective Progress Note for:: 11/17/18 Subjective:: Patient seen while she is sitting up on chair. Her blood culture is positive for gram-positive cocci in clusters and her wound culture grew MRSA. Patient has been getting vancomycin IV. Echocardiogram requested for possible vegetation. This patient has gram-positive cocci bacteremia and wound culture positive for MRSA patient qualify for inpatient status. I will repeat her blood culture. Reason For Visit: FACIAL CELLULITIS Physical Exam Vital Signs: Temp Pulse Resp BP Pulse Ox 97.7 F 116 H 17 136/87 H 100 11/16/18 23:26 11/16/18 23:26 11/16/18 23:26 11/16/18 23:26 11/16/18 23:26 Intake & Output 11/16/18 11/17/18 11/18/18 06:59 06:59 06:59 Intake Total 900 1616 610 Balance 900 1616 610 Weight 66.2 kg 68.6 kg Results Laboratory Results: 11/15/18 14:46 11/15/18 14:46 11/15/18 14:46 Clean Catch Midstream Urine Culture - Final Mixed Urogenital Suzanna 11/15/18 14:15 Face - Cheek Gram Stain - Final 11/15/18 14:15 Face - Cheek Wound Culture - Final Mrsa (Meth Resis Staph Aureus) Impressions: Facial Bones CT 11/15/18 14:15 IMPRESSION: 1. Diffuse cellulitis. No abscess. 2. Right frontal sinusitis. Assessment and Plan - Diagnosis (1) Wound culture positive for MRSA Is this a current diagnosis for this admission?: Yes Plan: Patient has been on vancomycin. (2) Gram-positive cocci bacteremia Is this a current diagnosis for this admission?: Yes Plan: Final reports pending patient has been on vancomycin. Echocardiogram requested for possible vegetation. (3) Cellulitis of face Is this a current diagnosis for this admission?: Yes (4) Polysubstance abuse Is this a current diagnosis for this admission?: Yes Plan: Patient confessed that she has been shooting heroin. I strongly advised her and counseled her that she need to stop using IV drugs. She voices agreement. She is going to be worked up for hepatitis panel and HIV. (5) Tobacco dependence Is this a current diagnosis for this admission?: Yes Plan: Recent counseled and encouraged to quit smoking.
--- NOTE | 2018-11-17 14:59 | RADIOLOGY REPORT (SQ) ---
EXAM DESCRIPTION: PICC INSERTION; U/S GUIDE FOR VASCULAR ACCESS; FLUORO/CV PLACEMENT COMPLETED DATE/TIME: 11/17/2018 2:46 pm REASON FOR STUDY: iv access,antibx; IV ACCESS COMPARISON: Facial CT 11/15/2018, 12/16/2012 FLUOROSCOPY TIME: 0.5 minutes 1 ultrasound and 1 fluoroscopic images saved to PACS. TECHNIQUE: Fluoroscopic and ultrasound guided PICC placement. LIMITATIONS: None. PROCEDURE: After written consent and assessment were obtained, the patient was brought into the fluo roscopy room and placed supine on the table. Ultrasound evaluation of potential access sites were per formed. After successfully identifying a patent left basilic vein, the left arm was prepped and drape d in a sterile fashion along with the ultrasound probe. The entry site was anesthetized with 1% lidoc khris. A 21 gauge 7 cm needle was advanced through the skin and into the basilic vein under live ultra sound guidance. An ultrasound image was saved to PACS confirming access site. A .018 guide wire was then inserted through the needle and into the venous system. The needle was then removed and an 11 b lade scalpel was used to make a 1cm skin incision. A 5 fr peel-away sheath was advanced over the wir e and into the venous system. A measurement was then made using the existing wire and live fluoroscop ic guidance. The wire was then removed and trimmed. The PICC was advanced through the peel-away sheat h and into the venous system. The peel-away sheath was removed and the catheter was adhered to the pa tients arm with a stat lock. The catheter was then aspirated and flushed and a sterile bandage was pl aced over the access site. A fluoroscopic spot image was saved to PACS confirming the catheter tip w ithin the superior vena cava. IMPRESSION: SUCCESSFUL PLACEMENT OF A 5 FR DUAL LUMEN 40 CM PICC IN THE LEFT BASILIC VEIN. COMMENT: Patient medication list reviewed: Yes- Quality ID# 130:Eligible professional attests to doc umenting in the medical record they obtained, updated, or reviewed the patient's current medications. . Quality ID 145: Final reports for procedures using fluoroscopy that document radiation exposure sam sydnie, or exposure time and number of fluorographic images (if radiation exposure indices are not avail able) Quality ID #76: The patient was prepped and draped using maximum sterile barrier technique including cap, mask, sterile gown, sterile gloves, a large sterile sheet, hand hygiene, and 2% Chlorhexidine fo r cutaneous antisepsis. When ultrasound is used, sterile ultrasound techniques are followed requiring sterile gel and sterile probes. TECHNICAL DOCUMENTATION: JOB ID: [id number] [employer]- All Rights Reserved rev-11/26 Reading location - IP/workstation name: [email or web address]
[2018-11-17] MEDS: NORMAL SALINE 1000 ML 1,000 ML IV PRN (15:04)
--- NOTE | 2018-11-17 19:56 | XCELERA REPORT ---
[address] [address] Transthoracic Echocardiogram Report Name: CHELSEA WEEKS Age: 28 yrs Gender: Female : 1990 Patient Status: Inpatient Patient Location: [address] [place] [address] Study Date: 11/17/2018 05:27 PM Height: 61 in Weight: 151 lb BSA: 1.7 m2 Procedure: A two-dimensional transthoracic echocardiogram with color flow and Doppler was performed. The study was technically difficult with many images being suboptimal in quality. Reason For Study: vegtation History: vegtation / Endocarditis. Ordering Physician: LAKISHA WRIGHT Performed By: Chelsea Eastman Interpretation Summary The left ventricle is normal in size. The left ventricular ejection fraction is within normal limits. LV EF is > than 60% LV diastolic function not assessed. The left ventricular wall motion is normal. There is no thrombus. The right ventricle is normal in size and function. The right atrium is normal. The left atrial size is normal. The interatrial septum is intact with no evidence for an atrial septal defect. There is no Doppler evidence for an interatrial shunt There is no evidence of mitral valve prolapse. There is no vegetation seen on the mitral valve. There is no mitral valve stenosis. There is a trace amount of mitral regurgitation There is no aortic valvular vegetation. There is no aortic valve stenosis There is no LVOT obstruction. No aortic regurgitation is present. There is no tricuspid valve vegetation. There is no tricuspid stenosis. There is a trace amount of tricuspid regurgitation Right ventricular systolic pressure is normal. RVSP is 27 mm of Hg , with RA mean of 10. There is no pulmonic valvular stenosis. There is no pulmonic valvular regurgitation. There is no pericardial effusion. MMode/2D Measurements & Calculations RVDd: 2.1 cm LVIDd: 4.5 cm FS: 32.7 % Ao root diam: 2.6 cm IVSd: 0.84 cm LVIDs: 3.0 cm EDV(Teich): Ao root area: LVPWd: 0.82 cm 92.8 ml 5.2 cm2 ESV(Teich): LA dimension: 3.1 cm 35.9 ml EF(Teich): 61.3 % LVLd ap4: 6.5 cm SV(MOD-sp4): EDV(MOD-sp4): 17.0 ml 27.0 ml LVLs ap4: 5.3 cm ESV(MOD-sp4): 10.0 ml EF(MOD-sp4): 63.0 % Doppler Measurements & Calculations MV E max yohana: MV P1/2t max yohana: Ao V2 max: LV V1 max P.1 cm/sec 156.1 cm/sec 129.0 cm/sec 4.8 mmHg MV P1/2t: 63.5 msec Ao max P.7 mmHgLV V1 max: MVA(P1/2t): 3.5 cm2 109.1 cm/sec MV dec slope: 719.6 cm/sec2 MV dec time: 0.14 sec PA V2 max: TR max yohana: MV P1/2t-pr_phl: 126.2 cm/sec 202.2 cm/sec 63.5 msec PA max P.4 mmHgTR max P.4 mmHg Left Ventricle The left ventricle is normal in size. There is normal left ventricular wall thickness. The left ventricular ejection fraction is within normal limits. LV EF is > than 60%. LV diastolic function not assessed. The left ventricular wall motion is normal. There is no thrombus. There is no ventricular septal defect visualized. Right Ventricle The right ventricle is normal in size and function. Atria The right atrium is normal. The left atrial size is normal. The interatrial septum is intact with no evidence for an atrial septal defect. There is no Doppler evidence for an interatrial shunt. Mitral Valve There is no evidence of mitral valve prolapse. There is no vegetation seen on the mitral valve. There is no mitral valve stenosis. There is a trace amount of mitral regurgitation. Aortic Valve There is no aortic valvular vegetation. There is no aortic valve stenosis. There is no LVOT obstruction. No aortic regurgitation is present. Tricuspid Valve There is no tricuspid valve vegetation. There is no tricuspid stenosis. There is a trace amount of tricuspid regurgitation. Right ventricular systolic pressure is normal. RVSP is 27 mm of Hg , with RA mean of 10. Pulmonic Valve There is no pulmonic valvular stenosis. There is no pulmonic valvular regurgitation. Great Vessels The aortic root is normal size. Effusions There is no pericardial effusion. : LAKISHA WRIGHT > Wild, Gena
[2018-11-18] MEDS: DIAZEPAM 5 MG TABLET PO SCH ×3 (06:03→21:46)
[2018-11-18] MEDS: VANCOMYCIN HCL 1,250 MG in DEXTROSE 5%-WATER 250 ML IV SCH ×3 (06:03→21:44)
[2018-11-18] MEDS: ACETAMINOPHEN 325 MG TABLET PO PRN ×2 (06:03→17:24)
[2018-11-18 06:04] LABS: VANCOMYCIN,TROUGH 16.5 ug/mL (5.0-20.0)
[2018-11-18 08:40] LABS: HEPATITIS A AB IGM Negative (Negative); HEPATITIS B CORE AB IGM Negative (Negative); HEPATITS B SURFACE ANTIGEN Negative (Negative)
[2018-11-18] MEDS ORDERED: NORMAL SALINE 10 ML SDV (AFTER EACH USE) IV PRN (09:00)
[2018-11-18] MEDS: HEPARIN SOD (PORCINE) 5,000 UNIT/ML 1 ML SYRINGE SUBCUT SCH ×2 (09:16→21:46)
[2018-11-18 09:33] LABS: HEPATITIS C VIRUS ANTIBODY >11.0 s/co ratio (0.0-0.9)
[2018-11-18] MEDS: NORMAL SALINE 10 ML SDV (SCHEDULED) IV SCH ×2 (09:52→21:46)
--- NOTE | 2018-11-18 13:31 | PDOC PROGRESS REPORT ---
Subjective Progress Note for:: 11/18/18 Subjective:: Patient seen while sitting up in bed. She is awake alert oriented. She is not in pain distress. She is well-tolerated sweats no fever no nausea no vomiting. Her hepatitis profile is positive for hep C. Her HIV is test is negative. Her blood culture is positive for MSSA and her wound culture was positive for MRSA. Reason For Visit: FUNCTIONAL CELLULITIS DUE TO MRSA Physical Exam Vital Signs: Temp Pulse Resp BP Pulse Ox 97.5 F 86 16 113/69 98 11/18/18 08:00 11/18/18 08:00 11/18/18 08:00 11/18/18 08:00 11/18/18 08:00 Intake & Output 11/17/18 11/18/18 11/19/18 06:59 06:59 06:59 Intake Total 1616 2710 250 Balance 1616 2710 250 Weight 68.6 kg 68.2 kg General appearance: PRESENT: no acute distress Head exam: PRESENT: atraumatic Neck exam: ABSENT: carotid bruit, JVD, lymphadenopathy, thyromegaly Respiratory exam: PRESENT: clear to auscultation salomón. ABSENT: rales, rhonchi, wheezes Pulses: PRESENT: normal dorsalis pedis pul GI/Abdominal exam: PRESENT: normal bowel sounds, soft. ABSENT: distended, guarding, mass, organolmegaly, rebound, tenderness Neurological exam: PRESENT: alert, awake, oriented to time, oriented to situation Results Laboratory Results: 11/15/18 14:46 11/18/18 05:35 11/18/18 05:35 Creatinine 0.50 L Est GFR ( Amer) > 60 Est GFR (Non-Af Amer) > 60 11/15/18 15:40 Blood Blood Culture - Final Staphylococcus Aureus Staphylococcus Epidermidis 11/15/18 14:46 Clean Catch Midstream Urine Culture - Final Mixed Urogenital Suzanna 11/15/18 14:15 Face - Cheek Gram Stain - Final 11/15/18 14:15 Face - Cheek Wound Culture - Final Mrsa (Meth Resis Staph Aureus) Impressions: Facial Bones CT 11/15/18 14:15 IMPRESSION: 1. Diffuse cellulitis. No abscess. 2. Right frontal sinusitis. Guidance Fluoroscopy 11/17/18 00:00 IMPRESSION: SUCCESSFUL PLACEMENT OF A 5 FR DUAL LUMEN 40 CM PICC IN THE LEFT BASILIC VEIN. Interventional Vascular Procedure 11/17/18 00:00 IMPRESSION: SUCCESSFUL PLACEMENT OF A 5 FR DUAL LUMEN 40 CM PICC IN THE LEFT BASILIC VEIN. PICC Line Insertion 11/17/18 12:02 IMPRESSION: SUCCESSFUL PLACEMENT OF A 5 FR DUAL LUMEN 40 CM PICC IN THE LEFT BASILIC VEIN. Assessment and Plan - Diagnosis (1) MSSA bacteremia Is this a current diagnosis for this admission?: Yes Plan: Continue current antibiotics. (2) Wound culture positive for MRSA Is this a current diagnosis for this admission?: Yes Plan: Patient has been on vancomycin. (3) Cellulitis of face Is this a current diagnosis for this admission?: Yes Plan: Patient has history of recurrent cellulitis. Currently she has been getting vancomycin IV. (4) Polysubstance abuse Is this a current diagnosis for this admission?: Yes Plan: Patient confessed that she has been shooting heroin. I strongly advised her and counseled her that she need to stop using IV drugs. She voices agreement. She is going to be worked up for hepatitis panel and HIV. (5) Tobacco dependence Is this a current diagnosis for this admission?: Yes Plan: Recent counseled and encouraged to quit smoking. (6) Hepatitis C Qualifiers: Viral hepatitis chronicity: chronic Is this a current diagnosis for this admission?: Yes Plan: Patient needs to follow-up with head concierge as outpatient.
[2018-11-19] MEDS: DIAZEPAM 5 MG TABLET PO SCH ×3 (06:05→21:12)
[2018-11-19] MEDS: VANCOMYCIN HCL 1,250 MG in DEXTROSE 5%-WATER 250 ML IV SCH ×3 (06:06→21:12)
[2018-11-19] MEDS: HEPARIN SOD (PORCINE) 5,000 UNIT/ML 1 ML SYRINGE SUBCUT SCH ×2 (09:30→21:12)
[2018-11-19] MEDS: NORMAL SALINE 10 ML SDV (SCHEDULED) IV SCH ×2 (09:33→21:11)
--- NOTE | 2018-11-19 14:47 | PDOC PROGRESS REPORT ---
Subjective Progress Note for:: 11/19/18 Subjective:: Patient seen while sitting up in bed. She is awake alert oriented. She is not in pain or distress. Her facial swelling has markedly decreased. Her blood culture is positive for MSSA and staph epidermidis. Her wound culture is positive for MRSA. We will continue her vancomycin. Reason For Visit: FUNCTIONAL CELLULITIS DUE TO MRSA Physical Exam Vital Signs: Temp Pulse Resp BP Pulse Ox 97.4 F 100 14 108/63 100 11/19/18 12:00 11/19/18 12:00 11/19/18 12:00 11/19/18 12:00 11/19/18 12:00 Intake & Output 11/18/18 11/19/18 11/20/18 06:59 06:59 06:59 Intake Total 2710 2355 250 Balance 2710 2355 250 Weight 68.2 kg 68.3 kg Eye exam: PRESENT: conjunctiva pink Respiratory exam: PRESENT: clear to auscultation salom[place]. ABSENT: rales, rhonchi, wheezes Cardiovascular exam: PRESENT: RRR. ABSENT: diastolic murmur, rubs, systolic murmur Neurological exam: PRESENT: alert, awake, oriented to time, oriented to situation Skin exam: PRESENT: other - Bilateral crusting lesion on her cheeks. Results Laboratory Results: 11/15/18 14:46 11/18/18 05:35 11/15/18 23:00 Nasophary (Mrsa Only) MRSA Culture - Final MRSA RECOVERED Impressions: Facial Bones CT 11/15/18 14:15 IMPRESSION: 1. Diffuse cellulitis. No abscess. 2. Right frontal sinusitis. Guidance Fluoroscopy 11/17/18 00:00 IMPRESSION: SUCCESSFUL PLACEMENT OF A 5 FR DUAL LUMEN 40 CM PICC IN THE LEFT BASILIC VEIN. Interventional Vascular Procedure 11/17/18 00:00 IMPRESSION: SUCCESSFUL PLACEMENT OF A 5 FR DUAL LUMEN 40 CM PICC IN THE LEFT BASILIC VEIN. PICC Line Insertion 11/17/18 12:02 IMPRESSION: SUCCESSFUL PLACEMENT OF A 5 FR DUAL LUMEN 40 CM PICC IN THE LEFT BASILIC VEIN. Assessment and Plan - Diagnosis (1) MSSA bacteremia Is this a current diagnosis for this admission?: Yes Plan: Continue current antibiotics. (2) Wound culture positive for MRSA Is this a current diagnosis for this admission?: Yes Plan: Patient has been on vancomycin. (3) Cellulitis of face Is this a current diagnosis for this admission?: Yes Plan: Patient has history of recurrent cellulitis. Currently she has been getting vancomycin IV. (4) Polysubstance abuse Is this a current diagnosis for this admission?: Yes Plan: Patient confessed that she has been shooting heroin. I strongly advised her and counseled her that she need to stop using IV drugs. She voices agreement. She is going to be worked up for hepatitis panel and HIV. (5) Tobacco dependence Is this a current diagnosis for this admission?: Yes Plan: Recent counseled and encouraged to quit smoking. (6) Hepatitis C Qualifiers: Viral hepatitis chronicity: chronic Is this a current diagnosis for this admission?: Yes Plan: Patient needs to follow-up with licensed direct entry midwife as outpatient.
[2018-11-19] MEDS: NORMAL SALINE 1000 ML 1,000 ML IV PRN (21:15)
[2018-11-20] MEDS: DIAZEPAM 5 MG TABLET PO SCH ×3 (05:34→22:09)
[2018-11-20] MEDS: VANCOMYCIN HCL 1,250 MG in DEXTROSE 5%-WATER 250 ML IV SCH ×3 (05:37→22:09)
[2018-11-20] MEDS: HEPARIN SOD (PORCINE) 5,000 UNIT/ML 1 ML SYRINGE SUBCUT SCH ×2 (10:21→22:08)
[2018-11-20] MEDS: NORMAL SALINE 10 ML SDV (SCHEDULED) IV SCH ×2 (10:25→22:10)
--- NOTE | 2018-11-20 11:59 | PDOC PROGRESS REPORT ---
Subjective Progress Note for:: 11/20/18 Subjective:: Patient seen and examined at bedside. She is awake alert oriented. The skin lesion on almost temporal lesion is crusting and shrinking. Patient's potential discharge for tomorrow. Reason For Visit: FUNCTIONAL CELLULITIS DUE TO MRSA Physical Exam Vital Signs: Temp Pulse Resp BP Pulse Ox 98.7 F 111 H 16 122/88 H 100 11/20/18 07:56 11/20/18 07:56 11/20/18 07:56 11/20/18 07:56 11/20/18 07:56 Intake & Output 11/19/18 11/20/18 11/21/18 06:59 06:59 06:59 Intake Total 2355 2922 250 Balance 2355 2922 250 Weight 68.3 kg 68.2 kg General appearance: PRESENT: no acute distress Eye exam: PRESENT: conjunctiva pink Neck exam: ABSENT: carotid bruit, JVD, lymphadenopathy, thyromegaly Respiratory exam: PRESENT: clear to auscultation salomón. ABSENT: rales, rhonchi, wheezes Neurological exam: PRESENT: alert, awake, oriented to time, oriented to situation Results Laboratory Results: 11/15/18 14:46 11/18/18 05:35 Impressions: Facial Bones CT 11/15/18 14:15 IMPRESSION: 1. Diffuse cellulitis. No abscess. 2. Right frontal sinusitis. Guidance Fluoroscopy 11/17/18 00:00 IMPRESSION: SUCCESSFUL PLACEMENT OF A 5 FR DUAL LUMEN 40 CM PICC IN THE LEFT BASILIC VEIN. Interventional Vascular Procedure 11/17/18 00:00 IMPRESSION: SUCCESSFUL PLACEMENT OF A 5 FR DUAL LUMEN 40 CM PICC IN THE LEFT BASILIC VEIN. PICC Line Insertion 11/17/18 12:02 IMPRESSION: SUCCESSFUL PLACEMENT OF A 5 FR DUAL LUMEN 40 CM PICC IN THE LEFT BASILIC VEIN. Assessment and Plan - Diagnosis (1) MSSA bacteremia Is this a current diagnosis for this admission?: Yes Plan: Continue current antibiotics. (2) Wound culture positive for MRSA Is this a current diagnosis for this admission?: Yes Plan: Patient has been on vancomycin. (3) Cellulitis of face Is this a current diagnosis for this admission?: Yes Plan: Patient has history of recurrent cellulitis. Currently she has been getting vancomycin IV. (4) Polysubstance abuse Is this a current diagnosis for this admission?: Yes Plan: Patient confessed that she has been shooting heroin. I strongly advised her and counseled her that she need to stop using IV drugs. She voices agreement. She is going to be worked up for hepatitis panel and HIV. (5) Tobacco dependence Is this a current diagnosis for this admission?: Yes Plan: Recent counseled and encouraged to quit smoking. (6) Hepatitis C Qualifiers: Viral hepatitis chronicity: chronic Is this a current diagnosis for this admission?: Yes Plan: Patient needs to follow-up with machine inker as outpatient.
[2018-11-21] MEDS: VANCOMYCIN HCL 1,250 MG in DEXTROSE 5%-WATER 250 ML IV SCH (05:53)
[2018-11-21] MEDS: DIAZEPAM 5 MG TABLET PO SCH (05:53)
[2018-11-21] MEDS: NORMAL SALINE 1000 ML 1,000 ML IV PRN (06:58)
[2018-11-21 08:30] VITALS: BP 123/87
[2018-11-21] MEDS: ACETAMINOPHEN 325 MG TABLET PO PRN (10:31)
--- NOTE | 2018-11-21 10:41 | PDOC DISCHARGE SUMMARY ---
General - Admit/Disc Date/PCP Admission Date/Primary Care Provider: 11/17/18 12:12 Discharge Date: 11/21/18 - Discharge Diagnosis (1) MSSA bacteremia Is this a current diagnosis for this admission?: Yes (2) Wound culture positive for MRSA Is this a current diagnosis for this admission?: Yes (3) Cellulitis of face Is this a current diagnosis for this admission?: Yes (4) Polysubstance abuse Is this a current diagnosis for this admission?: Yes (5) Tobacco dependence Is this a current diagnosis for this admission?: Yes (6) Hepatitis C Is this a current diagnosis for this admission?: Yes - Additional Information Resuscitation Status: Full Code Home Medications: No Home Medications 11/15/18 History of Present Illness History of Present Illness: CHELSEA WEEKS is a 28 year old female Hospital Course Hospital Course: This is 28 years old female patient who is a known case of polysubstance abuse and active IV drug user on probation, presented with chief complaint of tender erythematous facial swelling with crusting lesion salomón aterally. Patient self treated with topical antibiotics namely Neosporin to no avail. Patient empirically started on vancomycin. Her blood culture was positive for MSSA and staph epidermidis and her wound culture grew MRSA. Patient has been getting vancomycin IV. Echocardiogram requested for possible vegetation since the patient has MSSA bacteremia. It is negative for vegetation. The repeat blood culture is negative also. Her hepatitis panel is positive for hep C. Morning patient seen while sitting up in bed. Myofascial swelling and erythema has subsided and the crusting lesion on posterior surface of her face is decreased in size remarkably. Patient advised not to put topical antibiotic on her face. I will send her home with clindamycin for 7 days. Physical Exam Vital Signs: Temp Pulse Resp BP Pulse Ox 97.9 F 97 16 123/87 H 100 11/21/18 08:00 11/21/18 08:00 11/21/18 08:00 11/21/18 08:00 11/21/18 08:00 Intake & Output 11/20/18 11/21/18 11/22/18 06:59 06:59 06:59 Intake Total 2922 3608 Balance 2922 3608 Weight 68.2 kg 68.2 kg General appearance: PRESENT: no acute distress Eye exam: PRESENT: conjunctiva pink Neck exam: ABSENT: carotid bruit, JVD, lymphadenopathy, thyromegaly Respiratory exam: PRESENT: clear to auscultation salomón. ABSENT: rales, rhonchi, wheezes Cardiovascular exam: PRESENT: RRR. ABSENT: diastolic murmur, rubs, systolic murmur Neurological exam: PRESENT: alert, awake, oriented to time, oriented to situation Results Laboratory Results: 11/15/18 14:46 11/18/18 05:35 11/15/18 14:46 Blood Blood Culture - Final NO GROWTH IN 5 DAYS Impressions: Facial Bones CT 11/15/18 14:15 IMPRESSION: 1. Diffuse cellulitis. No abscess. 2. Right frontal sinusitis. Guidance Fluoroscopy 11/17/18 00:00 IMPRESSION: SUCCESSFUL PLACEMENT OF A 5 FR DUAL LUMEN 40 CM PICC IN THE LEFT BASILIC VEIN. Interventional Vascular Procedure 11/17/18 00:00 IMPRESSION: SUCCESSFUL PLACEMENT OF A 5 FR DUAL LUMEN 40 CM PICC IN THE LEFT BASILIC VEIN. PICC Line Insertion 11/17/18 12:02 IMPRESSION: SUCCESSFUL PLACEMENT OF A 5 FR DUAL LUMEN 40 CM PICC IN THE LEFT BASILIC VEIN. Qualifiers - * PATIENT BEING DISCHARGED WITH ANY OF THE FOLLOWING DIAGNOSIS: No Acute Heart Failure Is this a Heart Failure Patient?: No
== END 2018-11-21 13:30 | disposition home or self-care (01) | DRG 603 ==
LOC: ER 13:33 → INTOOBSV 16:58 → EH 16:58 → 4S 20:10 → OBSVTOIN 11-17 12:12
PROVIDERS: ADMIT Internal Medicine; ATTEND Internal Medicine
PROC: 02HV33Z Insertion of Infusion Device into Superior Vena Cava, Percutaneous Approach (ICD-10-PCS; principal; 2018-11-17)
PROC: B518ZZA Fluoroscopy of Superior Vena Cava, Guidance (ICD-10-PCS; 2018-11-17)
PROC: B548ZZA Ultrasonography of Superior Vena Cava, Guidance (ICD-10-PCS; 2018-11-17)
DX: L03.211 Cellulitis of face (principal); R78.81 Bacteremia; B95.62 Methicillin resistant Staphylococcus aureus infection as the cause of diseases classified elsewhere; B18.2 Chronic viral hepatitis C; B95.61 Methicillin susceptible Staphylococcus aureus infection as the cause of diseases classified elsewhere; F17.200 Nicotine dependence, unspecified, uncomplicated; F14.10 Cocaine abuse, uncomplicated; F11.10 Opioid abuse, uncomplicated; F15.10 Other stimulant abuse, uncomplicated; Z86.14 Personal history of Methicillin resistant Staphylococcus aureus infection; Z65.3 Problems related to other legal circumstances
CPT/HCPCS: 36415; 36569; 70487; 76937; 77001; 80053; 80074; 80202; 80307; 81001; 82565; 83605; 84703; 85025; 86701; 87040; 87070; 87077; 87086; 87186; 87205; 93306; 96365; 99284; G0378; J1642; J1644; J3370; J3490; J7030; J7060

== ENCOUNTER 2019-03-10 22:18 | Inpatient (IN) | payer SELFPAY ==
[2019-03-11] MEDS ORDERED: NORMAL SALINE 1000 ML 1,000 ML IV ONE (00:46)
[2019-03-11] MEDS ORDERED: FENTANYL CITRATE INJ/PF 100 MCG/2 ML AMPUL IV ONE (00:47)
[2019-03-11] MEDS ORDERED: VANCOMYCIN HCL INJ 1000 MG VIAL IV ONE (00:53)
[2019-03-11 01:40] LABS: ABSOLUTE EOSINOPHILS # (AUTO) 0.3 10^3/uL (0.0-0.6); ABSOLUTE LYMPHOCYTES (AUTO) 2.8 10^3/uL (0.5-4.7); ABSOLUTE MONOCYTES (AUTO) 1.1 10^3/uL (0.1-1.4); ABSOLUTE NEUT (AUTO) 3.8 10^3/uL (1.7-8.2); BASOPHILS % (AUTO) 0.4 % (0-2); EOSINOPHILS % (AUTO) 3.5 % (0-6); HEMATOCRIT 37.2 % (36.0-47.0); HEMOGLOBIN 12.4 g/dL (12.0-15.5); LYMPHOCYTES % (AUTO) 35.2 % (13-45); MEAN CORPUSCULAR HEMOGLOBIN 30.6 pg (27.0-33.4); MEAN CORPUSCULAR HGB CONC 33.5 g/dL (32.0-36.0); MEAN CORPUSCULAR VOLUME 91 fl (80-97); MONOCYTES % (AUTO) 13.2 % (3-13); PLATELET COUNT 211 10^3/uL (150-450); RED BLOOD COUNT 4.06 10^6/uL (3.72-5.28); RED CELL DISTRIBUTION WIDTH 15.2 % (11.5-14.0); SEGMENTED NEUTROPHILS % (AUTO) 47.7 % (42-78); TOTAL CELLS COUNTED % (AUTO) 100 %
[2019-03-11 01:58] LABS: ALBUMIN 3.7 g/dL (3.5-5.0); ALKALINE PHOSPHATASE 57 U/L (38-126); ANION GAP 6 (5-19); ASPARTATE AMINO TRANSFERASE 48 U/L (14-36); BILIRUBIN,DIRECT 0.3 mg/dL (0.0-0.4); BILIRUBIN,TOTAL 0.5 mg/dL (0.2-1.3); BLOOD UREA NITROGEN 12 mg/dL (7-20); CALCIUM 8.6 mg/dL (8.4-10.2); CARBON DIOXIDE 29 mmol/L (22-30); CHLORIDE 104 mmol/L (98-107); GLUCOSE 96 mg/dL (75-110); POTASSIUM 4.5 mmol/L (3.6-5.0); TOTAL PROTEIN 6.6 g/dL (6.3-8.2)
[2019-03-11] MEDS ORDERED: NICOTINE 14 MG/24 HR PATCH.TD24 TD ONE (04:09)
[2019-03-11] MEDS ORDERED: IBUPROFEN 600 MG TABLET PO ONE (04:43)
--- NOTE | 2019-03-11 04:50 | RADIOLOGY REPORT (SQ) ---
EXAM DESCRIPTION: CT MAXILLOFACIAL WITH IV CONTRAST COMPLETED DATE/TME: 03/11/2019 00:00 CLINICAL HISTORY: 29 years Female, PT PICKED 4HEAD BETWIXT EYES, NOW HAS swelling,REDNESS.CONCERN Abscess Comparison: None. Technique: No contrast. Coronal and sagittal reformat. This exam was performed according to our departmental dose-optimization program, which includes automated exposure control, adjustment of the mA and/or kV according to patient size and/or use of iterative reconstruction technique.[facility]: Dose Right [facility]: CareDose [facility]: Dose Right [facility]: Teradose 4D [facility]: [email or web address] LIMITATIONS: None Findings: Mild diffuse swelling of upper midline fascial/nuchal soft tissues and frontal scalp. No drainable fluid collection. No abscess. Facial bones including orbits, nasal bone, paranasal sinuses, and pterygoid plates appear otherwise intact. Unremarkable partially visualized inferior cranium, temporal bone, and upper neck. IMPRESSION: Swelling. Moderate ethmoiditis.
--- NOTE | 2019-03-11 05:59 | ER Document Report ---
Doctor's Note Notes: I personally and independently obtained patient history and examined the patient in conjunction with the APC and agree with the assessment, treatment plan and disposition of the patient as recorded by the APC, and have reviewed the APC's note. HISTORY OF PRESENT ILLNESS: Patient is a 29-year-old female that presents to the emergency department for chief complaint of swelling and redness of her face. Patient has a history of MRSA infections, and facial cellulitis, she was seen in November for the same and admitted, she states that it seems worse this time and it was then, she had a small pimple in the middle of her forehead, that was popped, and spread across her forehead, and cause swelling around both her eyes, worse in the right compared to the left she states this occurred over 24 hours. And its getting worse. PHYSICAL EXAMINATION: Vital signs reviewed, nursing noted reviewed. GENERAL: Well-appearing, well-nourished and in no acute distress. HEAD: Atraumatic, normocephalic. There is erythema, and what appears to be impetigo across the middle of the forehead, with associated dennis-orbital swelling as noted below. EYES: Periorbital/preseptal edema, and erythema bilaterally, worse in the right compared to the left, with tenderness to palpation. ENT: nares patent, oropharynx clear without exudates. Moist mucous membranes. NECK: Normal range of motion, supple without lymphadenopathy LUNGS: Breath sounds clear to auscultation bilaterally and equal. No wheezes rales or rhonchi. HEART: Heart rate tachycardic, regular rhythm, no audible murmur. ABDOMEN: Soft, nontender, normoactive bowel sounds. No rebound, guarding, or rigidity. No masses appreciated. EXTREMITIES: Nontender, good range of motion, no pitting or edema. NEUROLOGICAL: No focal neurological deficits. Moves all extremities spontaneously Motor and sensory grossly intact on exam. PSYCH: Normal mood, normal affect. SKIN: Warm, Dry, normal turgor MEDICAL DECISION MAKING: Patient seen and examined, vital signs reviewed, patient's blood work was reviewed, was unremarkable, but clinically this patient has a significant facial cellulitis, and has a history of MRSA, and did grow staph in her blood in the past, and I worried because she has multiple areas of what looks like impetigo, and additionally has periorbital edema, that this would progress, regardless of oral antibiotics, and I think she does need a few days at least of IV antibiotics, to treat this infection. Please review detail APC documentation. *Note is created using voice recognition software and may contain spelling, syntax or grammatical errors. Laboratory 03/11/19 03/11/19 03/11/19 01:25 01:25 01:25 WBC 8.0 RBC 4.06 Hgb 12.4 Hct 37.2 MCV 91 MCH 30.6 MCHC 33.5 RDW 15.2 H Plt Count 211 Lymph % (Auto) 35.2 [place] % (Auto) 13.2 H Eos % (Auto) 3.5 Baso % (Auto) 0.4 Absolute Neuts (auto) 3.8 Absolute Lymphs (auto) 2.8 Absolute Monos (auto) 1.1 Absolute Eos (auto) 0.3 Absolute Basos (auto) 0.0 Seg Neutrophils % 47.7 Sodium 138.6 Potassium 4.5 Chloride 104 Carbon Dioxide 29 Anion Gap 6 BUN 12 Creatinine 0.54 Est GFR ( Amer) > 60 Est GFR (MDRD) Non-Af > 60 Glucose 96 Lactic Acid 0.8 Calcium 8.6 Total Bilirubin 0.5 Direct Bilirubin 0.3 Neonat Total Bilirubin Not Reportable Neonat Direct Bilirubin Not Reportable Neonat Indirect Bili Not Reportable AST 48 H ALT 80 Alkaline Phosphatase 57 Total Protein 6.6 Albumin 3.7 Serum HCG, Qual 03/11/19 01:25 WBC RBC Hgb Hct MCV MCH MCHC RDW Plt Count Lymph % (Auto) [place] % (Auto) Eos % (Auto) Baso % (Auto) Absolute Neuts (auto) Absolute Lymphs (auto) Absolute Monos (auto) Absolute Eos (auto) Absolute Basos (auto) Seg Neutrophils % Sodium Potassium Chloride Carbon Dioxide Anion Gap BUN Creatinine Est GFR ( Amer) Est GFR (MDRD) Non-Af Glucose Lactic Acid Calcium Total Bilirubin Direct Bilirubin Neonat Total Bilirubin Neonat Direct Bilirubin Neonat Indirect Bili AST ALT Alkaline Phosphatase Total Protein Albumin Serum HCG, Qual NEGATIVE Facial Bones CT 03/11/19 00:00 IMPRESSION: Swelling. Moderate ethmoiditis.
--- NOTE | 2019-03-11 07:37 | ER Document Report ---
ED General - General Chief Complaint: Skin Problem Stated Complaint: FACIAL PAIN Time Seen by Provider: 03/11/19 00:30 Notes: Patient is a 29-year-old female presents to the emergency department for lesion to her forehead. Patient states she noticed a pimple on the middle of her forehead and popped it this evening. Patient voices that the redness and swelling has increased which is why she presents to the emergency department. Patient voices that she is a current IV drug abuser. Patient states she has been admitted to this hospital before for cellulitis and extensive skin abscesses. Patient's denying any fevers at this time. TRAVEL OUTSIDE OF THE [place] IN LAST 30 DAYS: No - Related Data Allergies/Adverse Reactions: No Known Allergies Allergy (Verified 05/11/18 14:07) Past Medical History - General Information source: Patient - Social History Smoking Status: Current Every Day Smoker Frequency of alcohol use: Occasional Drug Abuse: Cocaine, Heroin Family History: Reviewed & Not Pertinent Patient has suicidal ideation: No Patient has homicidal ideation: No Pulmonary Medical History: Reports: Hx Bronchitis Renal/ Medical History: Reports: Hx Ovarian Cysts. Denies: Hx Peritoneal Dialysis - Immunizations Hx Diphtheria, Pertussis, Tetanus Vaccination: No Review of Systems - Review of Systems Constitutional: denies: Fever EENT: No symptoms reported Cardiovascular: No symptoms reported Respiratory: No symptoms reported Gastrointestinal: No symptoms reported Genitourinary: No symptoms reported Female Genitourinary: No symptoms reported Musculoskeletal: No symptoms reported Skin: See HPI Hematologic/Lymphatic: No symptoms reported Neurological/Psychological: No symptoms reported Physical Exam - Vital signs Vitals: Temp Pulse Resp BP Pulse Ox 97.7 F 107 H 20 127/75 H 100 03/10/19 22:22 03/10/19 22:22 03/10/19 22:22 03/10/19 22:22 03/10/19 22:22 - Notes Notes: GENERAL: Alert, interacts well. No acute distress. HEAD: Normocephalic. EYES: Pupils equal, round, and reactive to light. Extraocular movements intact and painless. Periorbital edema noted bilaterally. ENT: Oral mucosa moist, tongue midline. Nares patent. NECK: Full range of motion. Supple. Trachea midline. LUNGS: Clear to auscultation bilaterally, no wheezes, rales, or rhonchi. No respiratory distress. HEART: Regular rate and rhythm. No murmur ABDOMEN: Soft, non-tender. Non-distended. Bowel sounds present in all 4 quadrants. EXTREMITIES: Moves all 4 extremities spontaneously. No edema, normal radial and dorsalis pedis pulses bilaterally. No cyanosis. BACK: no cervical, thoracic, lumbar midline tenderness. No saddle anesthesia, normal distal neurovascular exam. NEUROLOGICAL: Alert and oriented x3. Normal speech. cranial nerves II through XII grossly intact. PSYCH: Normal affect, normal mood. SKIN: Warm, dry, normal turgor. Large erythematous area noted to patient's forehead down to the bridge of the nose. Slight honey crusted lesions. Multiple lesions noted to bilateral cheeks. Course - Re-evaluation Re-evalutation: Patient is a 29-year-old known drug abuser. Patient has been treated and admitted in the emergency department for MRSA infections in the past. Patient's lesion to the center of her face is large and creating periorbital edema. CT shows no signs of specific fluid collection or abscess. Discussed this case with my attending Dr. Lemus who despite the patient's not failing outpatient antibiotics he feels the patient should be admitted. I have discussed this case with hospitalist Latanya Redd nurse practitioner who will admit the patient for continued care. - Vital Signs Vital signs: Temp Pulse Resp BP Pulse Ox 97.7 F 107 H 20 127/75 H 100 03/10/19 22:22 03/10/19 22:22 03/10/19 22:22 03/10/19 22:22 03/10/19 22:22 - Laboratory Result Diagrams: 03/11/19 01:25 03/11/19 01:25 Laboratory results interpreted by me: 03/11/19 03/11/19 01:25 01:25 RDW 15.2 H [place] % (Auto) 13.2 H AST 48 H Discharge - Discharge Clinical Impression: Cellulitis Qualifiers: Site of cellulitis: face Qualified Code(s): L03.211 - Cellulitis of face Condition: Stable Disposition: ADMITTED INPATIENT Admitting Provider: Rosalva (Hospitalist) Unit Admitted: Medical Floor
[2019-03-11] MEDS ORDERED: ALBUTEROL SULFATE 0.083% NEB 2.5 MG/3 ML AMPUL NEB PRN (07:44)
[2019-03-11] MEDS ORDERED: MAG HYDROX/AL HYDROX/SIMETH SUSP 30 ML UDCUP PO PRN (07:44)
[2019-03-11] MEDS ORDERED: ACETAMINOPHEN 325 MG TABLET PO PRN (07:44)
[2019-03-11] MEDS ORDERED: ONDANSETRON HCL INJ/PF 4 MG/2 ML SDV IV PRN (07:44)
[2019-03-11] MEDS ORDERED: PROMETHAZINE HCL INJ 25 MG/1 ML VIAL IV PRN (07:44)
[2019-03-11] MEDS ORDERED: MAGNESIUM HYDROXIDE SUSP 30 ML UDCUP PO PRN (07:44)
[2019-03-11] MEDS ORDERED: KETOROLAC TROMETHAMINE INJ/PF 30 MG/1 ML SDV IV PRN (07:49)
[2019-03-11] MEDS ORDERED: VANCOMYCIN HCL 0 MG in DEXTROSE 5%-WATER 250 ML IV NR (09:30)
[2019-03-11] MEDS: DOCUSATE SODIUM 100 MG CAPSULE PO SCH (09:37)
[2019-03-11] MEDS: FAMOTIDINE 20 MG TABLET PO SCH ×2 (09:37→23:06)
[2019-03-11] MEDS: OXYCODONE-ACETAMINOPHEN 5-325 MG TABLET PO PRN (09:44)
[2019-03-11 10:03] LABS: URINE BARBITURATES SCREEN NEGATIVE; URINE BENZODIAZEPINES SCREEN NEGATIVE; URINE COCAINE SCREEN UNCONFIRMED POSITIVE; URINE MARIJUANA (THC) SCREEN UNCONFIRMED POSITIVE; URINE METHADONE SCREEN NEGATIVE; URINE PHENCYCLIDINE SCREEN NEGATIVE
[2019-03-11] MEDS: VANCOMYCIN HCL 1,000 MG in DEXTROSE 5%-WATER 250 ML IV SCH ×2 (10:38→17:33)
[2019-03-11] MEDS: OXYCODONE HCL IR 5 MG TABLET PO SCH ×3 (11:56→23:07)
[2019-03-11] MEDS: HEPARIN SOD (PORCINE) 5,000 UNIT/ML 1 ML VIAL SUBCUT SCH ×2 (13:02→23:05)
--- NOTE | 2019-03-11 16:37 | PDOC PROGRESS REPORT ---
Subjective Progress Note for:: 03/11/19 Reason For Visit: CELLULITIS Physical Exam Vital Signs: Temp Pulse Resp BP Pulse Ox 98.0 F 88 18 127/85 H 100 03/11/19 11:01 03/11/19 11:01 03/11/19 11:01 03/11/19 11:01 03/11/19 11:01 Intake & Output 03/10/19 03/11/19 03/12/19 06:59 06:59 06:59 Intake Total 1000 250 Balance 1000 250 Weight 65.3 kg General appearance: PRESENT: no acute distress, cooperative, well-developed, well-nourished Head exam: PRESENT: atraumatic, normocephalic Eye exam: PRESENT: conjunctiva pink, EOMI, periorbital swelling - Bilaterally, PERRLA. ABSENT: scleral icterus Ear exam: PRESENT: normal external ear exam Mouth exam: PRESENT: moist, tongue midline Teeth exam: PRESENT: poor dentation Neck exam: ABSENT: carotid bruit, JVD, lymphadenopathy, thyromegaly Respiratory exam: PRESENT: clear to auscultation salom[place], symmetrical, unlabored. ABSENT: rales, rhonchi, wheezes Cardiovascular exam: PRESENT: RRR, +S1, +S2. ABSENT: diastolic murmur, rubs, systolic murmur Pulses: PRESENT: normal dorsalis pedis pul Vascular exam: PRESENT: normal capillary refill GI/Abdominal exam: PRESENT: normal bowel sounds, soft. ABSENT: distended, guarding, mass, organolmegaly, rebound, tenderness Rectal exam: PRESENT: deferred Extremities exam: PRESENT: full ROM. ABSENT: calf tenderness, clubbing, pedal edema Neurological exam: PRESENT: alert, awake, oriented to person, oriented to place, oriented to time, oriented to situation, CN II-XII grossly intact. ABSENT: motor sensory deficit Psychiatric exam: PRESENT: appropriate affect, normal mood. ABSENT: homicidal ideation, suicidal ideation Skin exam: PRESENT: dry, warm, other - Wound to forehead with surrounding eryth alessandro and bilateral periorbital edema, multiple wounds to her face, chest, back. Patient is noted to touch, scratch at wounds numerous times throughout and had to be reminded multiple times to discontinue touching.. ABSENT: cyanosis, rash Results Laboratory Results: 03/11/19 01:25 03/11/19 01:25 03/11/19 03/11/19 03/11/19 01:25 01:25 01:25 WBC 8.0 RBC 4.06 Hgb 12.4 Hct 37.2 MCV 91 MCH 30.6 MCHC 33.5 RDW 15.2 H Plt Count 211 Seg Neutrophils % 47.7 Sodium 138.6 Potassium 4.5 Chloride 104 Carbon Dioxide 29 Anion Gap 6 BUN 12 Creatinine 0.54 Est GFR ( Amer) > 60 Glucose 96 Lactic Acid 0.8 Calcium 8.6 Total Bilirubin 0.5 AST 48 H Alkaline Phosphatase 57 Total Protein 6.6 Albumin 3.7 Serum HCG, Qual 03/11/19 01:25 WBC RBC Hgb Hct MCV MCH MCHC RDW Plt Count Seg Neutrophils % Sodium Potassium Chloride Carbon Dioxide Anion Gap BUN Creatinine Est GFR ( Amer) Glucose Lactic Acid Calcium Total Bilirubin AST Alkaline Phosphatase Total Protein Albumin Serum HCG, Qual NEGATIVE Impressions: Facial Bones CT 03/11/19 00:00 IMPRESSION: Swelling. Moderate ethmoiditis. Assessment and Plan - Diagnosis (1) Cellulitis of face Is this a current diagnosis for this admission?: Yes Plan: Patient CT demonstrates tissue edema and moderate ethmoiditis. Blood cultures are pending. Patient is admitted to the medical floor. She is empirically placed on IV vancomycin. Antiemetics and analgesics as needed. (2) Polysubstance abuse Is this a current diagnosis for this admission?: Yes Plan: Patient admits to polysubstance abuse; last use yesterday. She is uncertain what she used. Does confirm daily use. UDS is positive for opiates, cocaine, amphetamines, and marijuana. Patient is placed on scheduled oxycodone 5 mg every 6 hours to prevent withdrawal. Cessation strongly encouraged, unreceptive at this time. (3) Tobacco dependence Is this a current diagnosis for this admission?: Yes Plan: Smoking cessation encouraged. Nicotine replacement therapies provided - Time Time Spent with patient: 25-34 minutes Medications reviewed and adjusted accordingly: Yes Anticipated discharge: Home - Inpatient Certification Based on my medical assessment, after consideration of the patient's comorbidities, presenting symptoms, or acuity I expect that the services needed warrant INPATIENT care.: Yes I certify that my determination is in accordance with my understanding of Medicare's requirements for reasonable and necessary INPATIENT services [42 CFR 412.3e].: Yes Medical Necessity: Need for IV Antibiotics, Risk of Complication if Not Cared For in Hospital
[2019-03-11] MEDS ORDERED: NICOTINE 21 MG/24 HR PATCH.TD24 TD ONE (17:00)
[2019-03-12] MEDS: VANCOMYCIN HCL 1,000 MG in DEXTROSE 5%-WATER 250 ML IV SCH ×2 (02:34→10:16)
[2019-03-12] MEDS: OXYCODONE HCL IR 5 MG TABLET PO SCH ×4 (05:32→23:54)
[2019-03-12] MEDS: HEPARIN SOD (PORCINE) 5,000 UNIT/ML 1 ML VIAL SUBCUT SCH ×3 (05:33→23:08)
[2019-03-12 05:34] LABS: ABSOLUTE BASOPHILS # (AUTO) 0.1 10^3/uL (0.0-0.2); ABSOLUTE EOSINOPHILS # (AUTO) 0.4 10^3/uL (0.0-0.6); ABSOLUTE LYMPHOCYTES (AUTO) 3.1 10^3/uL (0.5-4.7); ABSOLUTE MONOCYTES (AUTO) 0.8 10^3/uL (0.1-1.4); ABSOLUTE NEUT (AUTO) 3.4 10^3/uL (1.7-8.2); BASOPHILS % (AUTO) 1.1 % (0-2); EOSINOPHILS % (AUTO) 5.2 % (0-6); HEMATOCRIT 39.1 % (36.0-47.0); LYMPHOCYTES % (AUTO) 39.2 % (13-45); MEAN CORPUSCULAR HEMOGLOBIN 30.7 pg (27.0-33.4); MEAN CORPUSCULAR HGB CONC 33.4 g/dL (32.0-36.0); MEAN CORPUSCULAR VOLUME 92 fl (80-97); MONOCYTES % (AUTO) 10.5 % (3-13); PLATELET COUNT 263 10^3/uL (150-450); RED BLOOD COUNT 4.24 10^6/uL (3.72-5.28); RED CELL DISTRIBUTION WIDTH 15.2 % (11.5-14.0); TOTAL CELLS COUNTED % (AUTO) 100 %; WHITE BLOOD COUNT 7.8 10^3/uL (4.0-10.5)
[2019-03-12 06:11] LABS: ANION GAP 6 (5-19); BLOOD UREA NITROGEN 9 mg/dL (7-20); CALCIUM 9.2 mg/dL (8.4-10.2); CARBON DIOXIDE 29 mmol/L (22-30); CHLORIDE 104 mmol/L (98-107); GLUCOSE 94 mg/dL (75-110); POTASSIUM 4.6 mmol/L (3.6-5.0)
[2019-03-12] MEDS: NICOTINE 21 MG/24 HR PATCH.TD24 TD SCH (10:16)
[2019-03-12] MEDS: FAMOTIDINE 20 MG TABLET PO SCH ×2 (10:16→23:08)
[2019-03-12] MEDS: DOCUSATE SODIUM 100 MG CAPSULE PO SCH (10:16)
[2019-03-12 10:35] LABS: VANCOMYCIN,TROUGH 7.9 ug/mL (5.0-20.0)
--- NOTE | 2019-03-12 16:18 | PDOC H&P ---
History of Present Illness Admission Date/PCP: 03/11/19 07:42 Patient complains of: facial pain History of Present Illness: CHELSEA WEEKS is a 29 year old female with a past medical history significant for substance abuse, tobacco dependence, and prior MRSA cellulitis of the face who presented to the emergency department with a complaint of frequent skin wou nds and significant facial pain, swelling, and erythema that developed rapidly over the last 24 hours following popping a pimple. Evaluation in the emergency room revealed mild tachycardia with a heart rate of 107, unremarkable vital signs, and a facial CT that demonstrated facial/nuchal soft tissue and frontal scalp swelling with moderate ethmoiditis. The patient was started on IV vancomycin and referred to the hospitalist service for admission and management. Addendum: Date of admission is 03/11/2019. Past Medical History Cardiac Medical History: Reports: None Pulmonary Medical History: Reports: Bronchitis EENT Medical History: Reports: None Neurological Medical History: Reports: None Endocrine Medical History: Reports: None Renal/ Medical History: Reports: None Malignancy Medical History: Reports: None GI Medical History: Reports: None Musculoskeltal Medical History: Reports: None Skin Medical History: Reports: None Psychiatric Medical History: Reports: Substance Abuse, Tobacco Dependency Traumatic Medical History: Reports: None Infectious Medical History: Reports: Methicillin-Resistant Staph Aureus Past Surgical History Past Surgical History: Reports: None Social History Information Source: Patient Lives with: Alone Smoking Status: Current Every Day Smoker Frequency of Alcohol Use: Occasional Hx Recreational Drug Use: Yes Drugs: Cocaine, Heroin, Marijuana Hx Prescription Drug Abuse: Yes - opiates - Advance Directive Resuscitation Status: Do Not Resuscitate Family History Family History: Reviewed & Not Pertinent Parental Family History Reviewed: Yes Children Family History Reviewed: Yes Sibling(s) Family History Reviewed.: Yes Medication/Allergy Home Medications: No Home Medications 03/11/19 Allergies/Adverse Reactions: No Known Allergies Allergy (Verified 05/11/18 14:07) Review of Systems Constitutional: ABSENT: chills, fever(s), headache(s), weight gain, weight loss Eyes: ABSENT: visual disturbances Ears: ABSENT: hearing changes Cardiovascular: ABSENT: chest pain, dyspnea on exertion, edema, orthropnea, palpitations Respiratory: ABSENT: cough, hemoptysis Gastrointestinal: ABSENT: abdominal pain, constipation, diarrhea, hematemesis, hematochezia, nausea, vomiting Genitourinary: ABSENT: dysuria, hematuria Musculoskeletal: ABSENT: joint swelling Integumentary: PRESENT: as per HPI Neurological: ABSENT: abnormal gait, abnormal speech, confusion, dizziness, focal weakness, syncope Psychiatric: ABSENT: anxiety, depression, homidical ideation, suicidal ideation Endocrine: ABSENT: cold intolerance, heat intolerance, polydipsia, polyuria Hematologic/Lymphatic: ABSENT: easy bleeding, easy bruising Physical Exam Vital Signs: Temp Pulse Resp BP Pulse Ox 98.0 F 76 16 119/78 100 03/12/19 11:59 03/12/19 11:59 03/12/19 11:59 03/12/19 11:59 03/12/19 11:59 Intake & Output 03/11/19 03/12/19 03/13/19 06:59 06:59 06:59 Intake Total 1000 1250 610 Output Total 0 Balance 1000 1250 610 Weight 65.3 kg 65.5 kg General appearance: PRESENT: no acute distress, well-developed, well-nourished Head exam: PRESENT: atraumatic, normocephalic Eye exam: PRESENT: conjunctiva pink, EOMI, periorbital swelling - Bilateral; significantly improved, PERRLA. ABSENT: scleral icterus Ear exam: PRESENT: normal external ear exam Mouth exam: PRESENT: moist, tongue midline Teeth exam: PRESENT: poor dentation Neck exam: ABSENT: carotid bruit, JVD, lymphadenopathy, thyromegaly Respiratory exam: PRESENT: clear to auscultation salom[place], symmetrical, unlabored. ABSENT: rales, rhonchi, wheezes Cardiovascular exam: PRESENT: RRR, +S1, +S2. ABSENT: diastolic murmur, rubs, systolic murmur Pulses: PRESENT: normal dorsalis pedis pul Vascular exam: PRESENT: normal capillary refill GI/Abdominal exam: PRESENT: normal bowel sounds, soft. ABSENT: distended, guarding, mass, organolmegaly, rebound, tenderness Rectal exam: PRESENT: deferred Extremities exam: PRESENT: full ROM. ABSENT: calf tenderness, clubbing, pedal edema Neurological exam: PRESENT: alert, awake, oriented to person, oriented to place, oriented to time, oriented to situation, CN II-XII grossly intact. ABSENT: motor sensory deficit Psychiatric exam: PRESENT: appropriate affect, normal mood. ABSENT: homicidal ideation, suicidal ideation Skin exam: PRESENT: dry, warm, other - Wound to forehead with surrounding erythema and bilateral periorbital edema, multiple wounds to her face, chest, back. ABSENT: cyanosis, intact, rash Results Laboratory Results: 03/12/19 05:17 03/12/19 05:17 03/12/19 03/12/19 05:17 05:17 WBC 7.8 RBC 4.24 Hgb 13.0 Hct 39.1 MCV 92 MCH 30.7 MCHC 33.4 RDW 15.2 H Plt Count 263 Seg Neutrophils % 44.0 Sodium 139.2 Potassium 4.6 Chloride 104 Carbon Dioxide 29 Anion Gap 6 BUN 9 Creatinine 0.57 Est GFR ( Amer) > 60 Glucose 94 Calcium 9.2 Impressions: Facial Bones CT 03/11/19 00:00 IMPRESSION: Swelling. Moderate ethmoiditis. Assessment and Plan - Diagnosis (1) Cellulitis of face Is this a current diagnosis for this admission?: Yes Plan: Patient CT demonstrates tissue edema and moderate ethmoiditis. Blood cultures are negative at 24 hours. Patient is admitted to the medical floor. Continue IV vancomycin. Based on prior wound cultures, may consider transition to Bactrim or clindamycin for completion of course of therapy once cultures are negative at 72 hours. Antiemetics and analgesics as needed. (2) Polysubstance abuse Is this a current diagnosis for this admission?: Yes Plan: Patient admits to polysubstance abuse; last use yesterday. She is uncertain what she used. Does confirm daily use. UDS is positive for opiates, cocaine, amphetamines, and marijuana. Patient is placed on scheduled oxycodone 5 mg every 6 hours to prevent withdrawal. Cessation strongly encouraged, unreceptive at this time. (3) Tobacco dependence Is this a current diagnosis for this admission?: Yes Plan: Smoking cessation encouraged. Nicotine replacement therapies provided - Time Time Spent with patient: 25-34 minutes Medications reviewed and adjusted accordingly: Yes Anticipated discharge: Home Within: within 72 hours
[2019-03-12] MEDS: VANCOMYCIN HCL 1,500 MG in DEXTROSE 5%-WATER 250 ML IV SCH (17:18)
[2019-03-12] MEDS: OXYCODONE-ACETAMINOPHEN 5-325 MG TABLET PO PRN (20:50)
[2019-03-13] MEDS: VANCOMYCIN HCL 1,500 MG in DEXTROSE 5%-WATER 250 ML IV SCH ×3 (01:17→17:40)
[2019-03-13] MEDS: HEPARIN SOD (PORCINE) 5,000 UNIT/ML 1 ML VIAL SUBCUT SCH ×3 (05:45→21:59)
[2019-03-13] MEDS: OXYCODONE HCL IR 5 MG TABLET PO SCH ×3 (06:09→17:40)
[2019-03-13] MEDS: OXYCODONE-ACETAMINOPHEN 5-325 MG TABLET PO PRN ×3 (08:45→22:08)
[2019-03-13] MEDS: FAMOTIDINE 20 MG TABLET PO SCH ×2 (11:04→22:08)
[2019-03-13] MEDS: DOCUSATE SODIUM 100 MG CAPSULE PO SCH (11:05)
[2019-03-13] MEDS: NICOTINE 21 MG/24 HR PATCH.TD24 TD SCH (12:22)
--- NOTE | 2019-03-13 15:10 | PDOC PROGRESS REPORT ---
Subjective Progress Note for:: 03/13/19 Subjective:: CHELSEA WEEKS is a 29 year old female with a past medical history significant for substance abuse, tobacco dependence, and prior MRSA cellulitis of the face who was admitted 03/11/19 for facial cellulitis. Patient was seen on morning rounds. She is found resting in bed comfortably on room air. She has a close family friend, Twila Delaney, present who she identifi es as her emergency contact at [phone]. The patient is very anxious today regarding a court date tomorrow; she is assured that our social worker assistant will assist with providing necessary documentation to show that she was admitted to the hospital at this time. Do not anticipate that the patient will be discharged in time for her to make her court appointment tomorrow. Patient notes that her erythema and edema to her face are significantly improved. She does have slight serous weeping to the wound between her eyebrows. Otherwise, she is feeling much better today. She denies fever, chills, chest pain, palpitations, dyspnea, cough, abdominal pain, nausea vomiting diarrhea. She has no other questions or concerns at this time. No concerns per nursing. Reason For Visit: CELLULITIS Physical Exam Vital Signs: Temp Pulse Resp BP Pulse Ox 97.8 F 87 19 104/88 H 100 03/13/19 13:00 03/13/19 13:00 03/13/19 13:00 03/13/19 13:00 03/13/19 13:00 Intake & Output 03/12/19 03/13/19 03/14/19 06:59 06:59 06:59 Intake Total 1250 1590 606 Output Total 0 Balance 1250 1590 606 Weight 65.5 kg 65.2 kg General appearance: PRESENT: no acute distress, well-developed, well-nourished Head exam: PRESENT: atraumatic, normocephalic Eye exam: PRESENT: conjunctiva pink, EOMI, PERRLA. ABSENT: periorbital swelling - Resolved, scleral icterus Ear exam: PRESENT: normal external ear exam Mouth exam: PRESENT: moist, tongue midline Teeth exam: PRESENT: poor dentation Neck exam: ABSENT: carotid bruit, JVD, lymphadenopathy, thyromegaly Respiratory exam: PRESENT: clear to auscultation salom[place], symmetrical, unlabored. ABSENT: rales, rhonchi, wheezes Cardiovascular exam: PRESENT: RRR. ABSENT: diastolic murmur, rubs, systolic murmur Pulses: PRESENT: normal dorsalis pedis pul Vascular exam: PRESENT: normal capillary refill GI/Abdominal exam: PRESENT: normal bowel sounds, soft. ABSENT: distended, guarding, mass, organolmegaly, rebound, tenderness Rectal exam: PRESENT: deferred Extremities exam: PRESENT: full ROM. ABSENT: calf tenderness, clubbing, pedal edema Musculoskeletal exam: PRESENT: ambulatory Neurological exam: PRESENT: alert, awake, oriented to person, oriented to place, oriented to time, oriented to situation, CN II-XII grossly intact. ABSENT: motor sensory deficit Psychiatric exam: PRESENT: appropriate affect, normal mood. ABSENT: homicidal ideation, suicidal ideation Skin exam: PRESENT: dry, warm, other - Wound to forehead serous weeping. Wound to mid back with scant sloughing. Numerous multiple small wounds/abrasions/excoriations to face, chest, back and extremities. No evidence of surrounding erythema into any at this time. ABSENT: cyanosis, intact, rash Results Laboratory Results: 03/12/19 05:17 03/12/19 05:17 Impressions: Facial Bones CT 03/11/19 00:00 IMPRESSION: Swelling. Moderate ethmoiditis. Assessment and Plan - Diagnosis (1) Cellulitis of face Is this a current diagnosis for this admission?: Yes Plan: Clinically improved. Patient CT demonstrates tissue edema and moderate ethmoiditis. Blood cultures are negative at 48 hours. Patient is admitted to the medical floor. Continue IV vancomycin. Based on prior wound cultures, may consider transition to Bactrim or clindamycin for completion of course of therapy once blood cultures are negative at 72 hours. Antiemetics and analgesics as needed. (2) Polysubstance abuse Is this a current diagnosis for this admission?: Yes Plan: Patient admits to polysubstance abuse; last use yesterday. She is uncertain what she used. Does confirm daily use. UDS is positive for opiates, cocaine, amphetamines, and marijuana. Patient is placed on scheduled oxycodone 5 mg every 6 hours to prevent withdrawal. Cessation strongly encouraged, unreceptive at this time. (3) Tobacco dependence Is this a current diagnosis for this admission?: Yes Plan: Smoking cessation encouraged. Nicotine replacement therapies provided - Time Time Spent with patient: 25-34 minutes Medications reviewed and adjusted accordingly: Yes Anticipated discharge: Home Within: within 24 hours
[2019-03-13 18:38] LABS: VANCOMYCIN,TROUGH 15.7 ug/mL (5.0-20.0)
[2019-03-14] MEDS: OXYCODONE HCL IR 5 MG TABLET PO SCH ×4 (00:35→17:27)
[2019-03-14] MEDS: VANCOMYCIN HCL 1,500 MG in DEXTROSE 5%-WATER 250 ML IV SCH ×3 (02:10→10:55)
[2019-03-14 04:36] LABS: HEMATOCRIT 40.7 % (36.0-47.0); HEMOGLOBIN 13.7 g/dL (12.0-15.5); MEAN CORPUSCULAR HEMOGLOBIN 30.6 pg (27.0-33.4); MEAN CORPUSCULAR HGB CONC 33.6 g/dL (32.0-36.0); MEAN CORPUSCULAR VOLUME 91 fl (80-97); PLATELET COUNT 302 10^3/uL (150-450); RED BLOOD COUNT 4.48 10^6/uL (3.72-5.28); RED CELL DISTRIBUTION WIDTH 14.9 % (11.5-14.0); WHITE BLOOD COUNT 7.4 10^3/uL (4.0-10.5)
[2019-03-14 04:54] LABS: ANION GAP 9 (5-19); BLOOD UREA NITROGEN 12 mg/dL (7-20); CALCIUM 9.3 mg/dL (8.4-10.2); CARBON DIOXIDE 24 mmol/L (22-30); CHLORIDE 106 mmol/L (98-107); GLUCOSE 84 mg/dL (75-110); POTASSIUM 4.7 mmol/L (3.6-5.0)
[2019-03-14] MEDS: HEPARIN SOD (PORCINE) 5,000 UNIT/ML 1 ML VIAL SUBCUT SCH ×2 (05:31→13:00)
[2019-03-14] MEDS ORDERED: PROMETHAZINE HCL INJ 25 MG/1 ML VIAL IV PRN (08:00)
[2019-03-14] MEDS ORDERED: ONDANSETRON HCL INJ/PF 4 MG/2 ML SDV IV PRN (08:00)
[2019-03-14] MEDS: OXYCODONE-ACETAMINOPHEN 5-325 MG TABLET PO PRN (09:20)
[2019-03-14] MEDS: NICOTINE 21 MG/24 HR PATCH.TD24 TD SCH (09:20)
[2019-03-14] MEDS: FAMOTIDINE 20 MG TABLET PO SCH (09:20)
[2019-03-14] MEDS: DOCUSATE SODIUM 100 MG CAPSULE PO SCH (09:21)
[2019-03-14] MEDS ORDERED: SULFAMETHOXAZOLE/TRIMETHOPRIM 800-160 MG TABLET PO SCH (11:00)
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
[2019-03-14 16:44] VITALS: BP 113/73
== END 2019-03-14 18:16 | disposition home or self-care (01) | DRG 603 ==
LOC: ER 22:18 → EH 03-11 07:42 → 5 03-11 10:56
PROVIDERS: ADMIT Internal Medicine; ATTEND Internal Medicine
DX: L03.211 Cellulitis of face (principal); L03.312 Cellulitis of back [any part except buttock and flank]; F17.210 Nicotine dependence, cigarettes, uncomplicated; F11.10 Opioid abuse, uncomplicated; F14.10 Cocaine abuse, uncomplicated; F15.10 Other stimulant abuse, uncomplicated; F12.10 Cannabis abuse, uncomplicated; Z66 Do not resuscitate; J32.2 Chronic ethmoidal sinusitis; Z86.14 Personal history of Methicillin resistant Staphylococcus aureus infection
CPT/HCPCS: 36415; 70487; 80048; 80053; 80202; 80307; 83605; 84703; 85025; 85027; 87040; 96361; 96365; 96374; 96375; 99284; J3010; J3370; J7030; J7060

== ENCOUNTER 2019-09-10 12:00 | Emergency (ER) | payer SELFPAY ==
[2019-09-10] MEDS ORDERED: NORMAL SALINE 1000 ML 2,000 ML IV ONE (12:34)
--- NOTE | 2019-09-10 12:37 | ER Document Report ---
ED Medical Screen (RME) - General Chief Complaint: Skin Sore(s) Stated Complaint: SKIN ISSUE Time Seen by Provider: 09/10/19 12:28 Notes: Patient is a 29-year-old female who presents to the emergency department with a chief complaint of a possible infection to her skin. Patient states that she has had fevers and chills. Patient also admits to low back pain. Patient has a history of IV drug abuse and MRSA. Patient states that she relapsed about a week ago. Exam: Mild cellulitis noted to chin and left side of face. Broken skin noted to right lower back. Patient crying. Heart rate 121. I have greeted and performed a rapid initial assessment of this patient. A comprehensive ED assessment and evaluation of the patient, analysis of test results and completion of medical decision making process will be conducted by an additional ED providers. TRAVEL OUTSIDE OF THE [place] IN LAST 30 DAYS: No - Related Data Allergies/Adverse Reactions: No Known Allergies Allergy (Verified 09/10/19 12:29) Past Medical History Pulmonary Medical History: Reports: Hx Bronchitis Renal/ Medical History: Reports: Hx Ovarian Cysts. Denies: Hx Peritoneal Dialysis Infectious Medical History: Reports: Hx MRSA - Immunizations Hx Diphtheria, Pertussis, Tetanus Vaccination: No Physical Exam - Vital signs Vitals: Temp Pulse Resp BP Pulse Ox 98.3 F 121 H 22 H 132/80 H 96 09/10/19 12:24 09/10/19 12:24 09/10/19 12:24 09/10/19 12:24 09/10/19 12:24 Course - Vital Signs Vital signs: Temp Pulse Resp BP Pulse Ox 98.3 F 121 H 22 H 132/80 H 96 09/10/19 12:24 09/10/19 12:24 09/10/19 12:24 09/10/19 12:24 09/10/19 12:24
[2019-09-10] MEDS ORDERED: CEFTRIAXONE 1 GM/D5W RTU 1 GM/50 ML RTUPB IV SCH (13:00)
[2019-09-10 13:17] LABS: ABSOLUTE BASOPHILS # (AUTO) 0.1 10^3/uL (0.0-0.2); ABSOLUTE EOSINOPHILS # (AUTO) 0.2 10^3/uL (0.0-0.6); ABSOLUTE LYMPHOCYTES (AUTO) 3.2 10^3/uL (0.5-4.7); ABSOLUTE MONOCYTES (AUTO) 1.3 10^3/uL (0.1-1.4); ABSOLUTE NEUT (AUTO) 4.2 10^3/uL (1.7-8.2); BASOPHILS % (AUTO) 0.6 % (0-2); HEMATOCRIT 35.3 % (36.0-47.0); HEMOGLOBIN 12.2 g/dL (12.0-15.5); LYMPHOCYTES % (AUTO) 35.5 % (13-45); MEAN CORPUSCULAR HEMOGLOBIN 31.4 pg (27.0-33.4); MEAN CORPUSCULAR HGB CONC 34.6 g/dL (32.0-36.0); MEAN CORPUSCULAR VOLUME 91 fl (80-97); MONOCYTES % (AUTO) 14.7 % (3-13); PLATELET COUNT 236 10^3/uL (150-450); RED BLOOD COUNT 3.89 10^6/uL (3.72-5.28); RED CELL DISTRIBUTION WIDTH 13.4 % (11.5-14.0); SEGMENTED NEUTROPHILS % (AUTO) 47.2 % (42-78); TOTAL CELLS COUNTED % (AUTO) 100 %; WHITE BLOOD COUNT 8.9 10^3/uL (4.0-10.5)
[2019-09-10 13:27] LABS: APPEARANCE,URINE SLIGHTLY-CLOUDY; BILIRUBIN,URINE NEGATIVE (NEGATIVE); COLOR,URINE YELLOW; GLUCOSE, URINE NEGATIVE (NEGATIVE); KETONES,URINE NEGATIVE (NEGATIVE); PROTEIN,URINE NEGATIVE (NEGATIVE); URINE SPECIFIC GRAVITY 1.011; UROBILINOGEN,URINE NEGATIVE mg/dL (<2.0)
--- NOTE | 2019-09-10 13:29 | ER Document Report ---
ED General - General Chief Complaint: Skin Sore(s) Stated Complaint: SKIN ISSUE Time Seen by Provider: 09/10/19 12:28 Mode of Arrival: Ambulatory Information source: Patient Notes: Patient is a 29-year-old female with a history of IV drug abuse presenting with subjective fevers at home, tachycardia, skin sores and severe back pain. Patient reports the back pain is her most pressing issue. She states this has been going on for several days. She reports over the last 2 days she has had a high fever at home. She is concerned she may have an infection somewhere. She denies any nausea, vomiting, diarrhea, dysuria, urinary urgency or frequency. She reports that 3 to 4 days ago she used IV cocaine, IV meth and IV heroin. She states she has been admitted in the past for MRSA in the blood. TRAVEL OUTSIDE OF THE [place] IN LAST 30 DAYS: No - Related Data Allergies/Adverse Reactions: No Known Allergies Allergy (Verified 09/10/19 12:29) Past Medical History - General Information source: Patient - Social History Smoking Status: Current Every Day Smoker Family History: Reviewed & Not Pertinent Patient has suicidal ideation: No Patient has homicidal ideation: No Pulmonary Medical History: Reports: Hx Bronchitis Renal/ Medical History: Reports: Hx Ovarian Cysts. Denies: Hx Peritoneal Dialysis Infectious Medical History: Reports: Hx MRSA Surgical Hx: Negative - Immunizations Hx Diphtheria, Pertussis, Tetanus Vaccination: No Review of Systems - Review of Systems Constitutional: See HPI EENT: No symptoms reported Cardiovascular: No symptoms reported Respiratory: No symptoms reported Gastrointestinal: No symptoms reported Genitourinary: No symptoms reported Female Genitourinary: No symptoms reported Musculoskeletal: See HPI Skin: See HPI Hematologic/Lymphatic: No symptoms reported Neurological/Psychological: No symptoms reported Physical Exam - Vital signs Vitals: Temp Pulse Resp BP Pulse Ox 98.3 F 121 H 22 H 132/80 H 96 09/10/19 12:24 09/10/19 12:24 09/10/19 12:24 09/10/19 12:24 09/10/19 12:24 - Notes Notes: PHYSICAL EXAMINATION: GENERAL: Well-appearing and in no acute distress. HEAD: Atraumatic, normocephalic. EYES: Pupils equal round and reactive to light, extraocular movements intact, conjunctiva are normal. ENT: Nares patent, oropharynx clear without exudates. Moist mucous membranes. NECK: Normal range of motion, supple without lymphadenopathy LUNGS: Breath sounds clear to auscultation bilaterally and equal. No wheezes rales or rhonchi. HEART: Tachycardic ABDOMEN: Soft, nontender, nondistended abdomen. No guarding, no rebound. No masses appreciated. Female : deferred Musculoskeletal: Normal range of motion, no pitting or edema. No cyanosis. Midline tenderness to the lumbar spine, no step-off or deformity on palpation. NEUROLOGICAL: Cranial nerves grossly intact. Normal speech, normal gait. Normal sensory, motor exams PSYCH: Patient very tearful, anxious. SKIN: Warm, Dry, normal turgor, multiple skin lesions noted to patient's face. Course - Re-evaluation Re-evalutation: Patient's work-up tonight has been unremarkable. Her initial tachycardia resolved after she was able to calm down and also received some fluids. She has a normal white blood count, otherwise normal labs and has had normal imaging. She does have some cellulitis to her face. I will start her on oral antibiotics for this. There is no indication for inpatient antibiotic treatment at this time as she has not yet failed outpatient. Patient verbalizes understanding and agreement with this plan. Patient will be voluntarily going to [facility] straight from the emergency department to get help with her substance abuse problems. - Vital Signs Vital signs: Temp Pulse Resp BP Pulse Ox 98.9 F 112 H 15 130/95 H 99 09/10/19 16:50 09/10/19 16:50 09/10/19 16:50 09/10/19 16:50 09/10/19 16:50 - Laboratory Result Diagrams: 09/10/19 12:58 09/10/19 12:58 Laboratory results interpreted by me: 09/10/19 09/10/19 09/10/19 12:58 12:58 12:58 Hct 35.3 L [place] % (Auto) 14.7 H Sodium 132.8 L BUN 4 L Glucose 119 H AST 114 H ALT 79 H Leukocyte Esterase Rfl TRACE H Discharge - Discharge Clinical Impression: Facial cellulitis Back pain Qualifiers: Back pain location: low back pain Chronicity: acute Back pain laterality: midline Sciatica presence: without sciatica Qualified Code(s): M54.5 - Low back pain Condition: Stable Disposition: HOME, SELF-CARE Additional Instructions: Cellulitis You have an infection of your skin and underlying soft tissues called cellulitis. This is due to bacteria, which can enter through any break in the skin, or even through an irritated hair follicle. Untreated, cellulitis will usually worsen. Antibiotics are required. Usually, warm packs or warm soaks, and elevation of the infected area are recommended. You should start getting better within 24 to 36 hours. Most infections respond quickly to the right medication. Follow-up care is important, however, to check for abscess (boil) formation, unsuspected foreign body, or resistant infection. If you develop fever, chills, or if the area of infection is becoming rapidly more swollen or painful, call the doctor at once. Low Back Pain Three out of every four people will have an episode of disabling back pain during their lifetime. Most commonly the pain is due to straining of the muscles and ligaments in the low back. Usual treatment includes: (1) Rest on a firm surface. Avoid lying on your stomach. (2) Ice pack the painful area. After a few days, gentle heat may be used intermittently to relax the area, or ice packs can be continued. (3) Medication may be needed -- muscle relaxers and antiinflammatory medicines are commonly used. (4) As the back improves, exercises are prescribed to strengthen the back and abdominal muscles. Your doctor will advise you on the proper care for your back at each stage in your recovery. You may be better in a few days -- or healing may take several weeks. If new symptoms of a "herniated disc" (radiation of pain, numbness, or tingling down the back of the leg or weakness in the leg) occur, you should be re-examined. Further testing may be necessary Clindamycin You have been given a prescription for the antibiotic clindamycin. It is often prescribed for infections in the mouth, such as dental infections or abscesses, and for skin infections due to MRSA. It's important that you take all the medication, unless instructed otherwise by your physician. Failure to complete the entire course can result in relapse of your condition. Common side effects of antibiotics include nausea, intestinal cramping, or diarrhea. Women may develop vaginal yeast infections, and babies can get yeast (thrush) in the mouth following the use of antibiotics. Contact your physician if you develop significant side effects from this medication. Allergy to this antibiotic can result in hives, wheezing, faintness, or itching. If symptoms of allergy occur, stop the medication and call the doctor. As discussed your work-up today was unremarkable. Your labs were normal. Your imaging of your back and facial area did not show any abscesses. Please take antibiotics as prescribed, this is very important. Return to the emergency department immediately if you develop worsening symptoms such as development of fever. Prescriptions: Ketorolac Tromethamine [Toradol 10 mg Tablet] 10 mg PO Q6HP PRN #24 tablet PRN Reason: Clindamycin HCl 300 mg PO QID #40 capsule
[2019-09-10 13:39] LABS: ALBUMIN 3.6 g/dL (3.5-5.0); ALKALINE PHOSPHATASE 114 U/L (38-126); ANION GAP 5 (5-19); ASPARTATE AMINO TRANSFERASE 114 U/L (14-36); BILIRUBIN,TOTAL 0.3 mg/dL (0.2-1.3); BLOOD UREA NITROGEN 4 mg/dL (7-20); CALCIUM 8.7 mg/dL (8.4-10.2); CARBON DIOXIDE 29 mmol/L (22-30); CHLORIDE 99 mmol/L (98-107); GLUCOSE 119 mg/dL (75-110); POTASSIUM 4.3 mmol/L (3.6-5.0); TOTAL PROTEIN 6.7 g/dL (6.3-8.2)
[2019-09-10 13:48] LABS: URINE AMPHETAMINES SCREEN NEGATIVE; URINE BARBITURATES SCREEN NEGATIVE; URINE BENZODIAZEPINES SCREEN NEGATIVE; URINE COCAINE SCREEN UNCONFIRMED POSITIVE; URINE MARIJUANA (THC) SCREEN UNCONFIRMED POSITIVE; URINE METHADONE SCREEN UNCONFIRMED POSITIVE; URINE PHENCYCLIDINE SCREEN NEGATIVE
--- NOTE | 2019-09-10 13:59 | RADIOLOGY REPORT (SQ) ---
EXAM DESCRIPTION: CT LUMBAR SPINE WITHOUT COMPLETED DATE/TIME: 09/10/2019 1:47 pm REASON FOR STUDY: back pain, iv drug use, eval for infection COMPARISON: None. TECHNIQUE: Axial images acquired through the lumbar spine without intravenous contrast. Images revi ewed with lung, soft tissue and bone windows. Reconstructed coronal and sagittal MPR images reviewed . All images stored on PACS. All CT scanners at this facility use dose modulation, iterative reconstruction, and/or weight based d osing when appropriate to reduce radiation dose to as low as reasonably achievable (ALARA). [facility]: Dose Right [facility]: CareDose [facility]: Dose Right [facility]: Teradose 4D [facility]: Nitric Bio RADIATION DOSE: mGy. LIMITATIONS: None. FINDINGS: SEGMENTATION: Normal. No transitional anatomy. ALIGNMENT: Normal. VERTEBRAL BODIES: No fractures. No dislocation. No acute findings. DISCS: No significant protrusions. Study limited by lack of intrathecal contrast. PEDICLES, TRANSVERSE PROCESSES: No fractures. No dislocation. No acute findings. FACETS, POSTERIOR ELEMENTS: No fractures. No dislocation. No spinal stenosis. HARDWARE: None in the spine. VISUALIZED RIBS: No fractures. SOFT TISSUES: No significant or acute finding in adjacent soft tissues. OTHER: No other significant finding. IMPRESSION: NORMAL CT OF THE LUMBAR SPINE. TECHNICAL DOCUMENTATION: JOB ID: [id number] Quality ID # [id number]: Final reports with documentation of one or more dose reduction techniques (e.g., Au tomated exposure control, adjustment of the mA and/or kV according to patient size, use of iterative reconstruction technique) 2010 [employer]- All Rights Reserved Reading location - IP/workstation name: [email or web address]
[2019-09-10] MEDS ORDERED: LEVETIRACETAM 1000 MG/NACL-ISO 1,000 MG/100 ML RTUPB IV ONE (14:45)
--- NOTE | 2019-09-10 15:17 | RADIOLOGY REPORT (SQ) ---
EXAM DESCRIPTION: CT FACIAL AREA WITH COMPLETED DATE/TIME: 09/10/2019 3:05 pm REASON FOR STUDY: eval for abscess COMPARISON: 03/11/2019. TECHNIQUE: Post contrast images through the facial bones and orbits windowed for bone and soft tissu e. Additional coronal and sagittal reconstructed images reviewed. All images stored on PACS. All CT scanners at this facility use dose modulation, iterative reconstruction, and/or weight based d osing when appropriate to reduce radiation dose to as low as reasonably achievable (ALARA). [facility]: Dose Right [facility]: CareDose [facility]: Dose Right [facility]: Teradose 4D [facility]: [employer] Soft CONTRAST TYPE AND DOSE: contrast/concentration: Isovue 350.00 mg/ml; Total Contrast Delivered: 50.0 ml; Total Saline Delivered: 50.0 ml RENAL FUNCTION: BUN 4 creatinine 0.57. RADIATION DOSE: CT Rad equipment meets quality standard of care and radiation dose reduction techniq ues were employed. CTDIvol: 30.4 mGy. DLP: 629 mGy-cm. . LIMITATIONS: None. FINDINGS: FACIAL BONES: No fracture or bone lesion. ORBITS: Intact. No fracture. Symmetric intact globes and retroorbital soft tissues. PARANASAL SINUSES: Mild fluid/soft tissue thickening in the ethmoid sinuses. Otherwise clear. SOFT TISSUES: No mass or edema. No abnormal enhancement. INFERIOR BRAIN: Limited view. No acute findings. OTHER: No other significant finding. IMPRESSION: NO SIGNIFICANT FINDINGS IN THE SOFT TISSUES. MILD ETHMOID SINUS DISEASE. TECHNICAL DOCUMENTATION: JOB ID: [id number] Quality ID # [id number]: Final reports with documentation of one or more dose reduction techniques (e.g., Au tomated exposure control, adjustment of the mA and/or kV according to patient size, use of iterative reconstruction technique) 2010 [employer] All Rights Reserved Reading location - IP/workstation name: [email or web address]
[2019-09-10 15:55] VITALS: BP 130/95
[2019-09-10] MEDS ORDERED: KETOROLAC TROMETHAMINE INJ/PF 30 MG/1 ML SDV IV ONE (16:24)
[2019-09-10] MEDS ORDERED: CLINDAMYCIN HCL 150 MG CAPSULE PO ONE (16:25)
== END 2019-09-10 16:51 | disposition home or self-care (01) ==
LOC: ER 12:00
DX: L03.211 Cellulitis of face (principal); M54.5 Low back pain; L98.9 Disorder of the skin and subcutaneous tissue, unspecified; R50.9 Fever, unspecified; R00.0 Tachycardia, unspecified; F19.10 Other psychoactive substance abuse, uncomplicated; F14.90 Cocaine use, unspecified, uncomplicated; F11.90 Opioid use, unspecified, uncomplicated; M54.9 Dorsalgia, unspecified; F17.200 Nicotine dependence, unspecified, uncomplicated
CPT/HCPCS: 99284; 96361; 96375; 96365; 36415; 87040; 83605; 84703; 85025; 80053; 81001; 80307; 70487; 72131; J1885; J7030; J0696

== ENCOUNTER 2019-09-10 22:51 | Emergency (ER) | payer SELFPAY ==
[2019-09-10 23:14] VITALS: BP 148/87
== END 2019-09-11 00:44 | disposition left against medical advice (07) ==
LOC: ER 22:51
DX: Z53.21 Procedure and treatment not carried out due to patient leaving prior to being seen by health care provider (principal)

== ENCOUNTER 2019-09-12 22:04 | Emergency (ER) | payer SELFPAY ==
[2019-09-12 22:11] VITALS: BP 134/105
[2019-09-12] MEDS ORDERED: NORMAL SALINE 1000 ML 1,000 ML IV ONE (22:32)
--- NOTE | 2019-09-12 22:35 | ER Document Report ---
ED Medical Screen (RME) - General Chief Complaint: Leg Pain Stated Complaint: RIGHT LEG PAIN Time Seen by Provider: 09/12/19 22:21 Notes: Patient is a 29-year-old female with a history of IV drug abuse who presents emergency department with right leg pain. Patient states that she was seen here 2 days ago and was placed on clindamycin. She states that the area of her leg has started to become red and swollen and it hurts her to walk on it. She also states that she continues to have back pain. Exam: Unable to completely visualize right leg, as the patient is wearing tight pants. Patient will be evaluated in the back. What is visible is erythema noted to the right lateral ankle/lower leg. I have greeted and performed a rapid initial assessment of this patient. A comprehensive ED assessment and evaluation of the patient, analysis of test results and completion of medical decision making process will be conducted by an additional ED providers. TRAVEL OUTSIDE OF THE [place] IN LAST 30 DAYS: No - Related Data Allergies/Adverse Reactions: No Known Allergies Allergy (Verified 09/10/19 12:29) Past Medical History - Social History Frequency of alcohol use: Social Drug Abuse: Cocaine, Heroin, Methamphetamine, Prescription drugs Pulmonary Medical History: Reports: Hx Bronchitis Renal/ Medical History: Reports: Hx Ovarian Cysts. Denies: Hx Peritoneal Dialysis Infectious Medical History: Reports: Hx MRSA - Immunizations Hx Diphtheria, Pertussis, Tetanus Vaccination: No Physical Exam - Vital signs Vitals: Temp Pulse Resp BP Pulse Ox 98.1 F 114 H 20 134/105 H 100 09/12/19 22:08 09/12/19 22:08 09/12/19 22:08 09/12/19 22:08 09/12/19 22:08 Course - Vital Signs Vital signs: Temp Pulse Resp BP Pulse Ox 98.1 F 114 H 20 134/105 H 100 09/12/19 22:08 09/12/19 22:08 09/12/19 22:08 09/12/19 22:08 09/12/19 22:08
[2019-09-12] MEDS ORDERED: VANCOMYCIN HCL INJ 1000 MG VIAL IV ONE (22:40)
[2019-09-12 23:08] LABS: ABSOLUTE EOSINOPHILS # (AUTO) 0.1 10^3/uL (0.0-0.6); ABSOLUTE LYMPHOCYTES (AUTO) 2.7 10^3/uL (0.5-4.7); ABSOLUTE MONOCYTES (AUTO) 1.3 10^3/uL (0.1-1.4); ABSOLUTE NEUT (AUTO) 5.7 10^3/uL (1.7-8.2); BASOPHILS % (AUTO) 0.2 % (0-2); EOSINOPHILS % (AUTO) 1.3 % (0-6); LYMPHOCYTES % (AUTO) 27.7 % (13-45); MEAN CORPUSCULAR HGB CONC 34.2 g/dL (32.0-36.0); MEAN CORPUSCULAR VOLUME 91 fl (80-97); MONOCYTES % (AUTO) 12.8 % (3-13); PLATELET COUNT 416 10^3/uL (150-450); RED BLOOD COUNT 3.87 10^6/uL (3.72-5.28); TOTAL CELLS COUNTED % (AUTO) 100 %; WHITE BLOOD COUNT 9.9 10^3/uL (4.0-10.5)
[2019-09-12 23:16] LABS: APPEARANCE,URINE SLIGHTLY-CLOUDY; BILIRUBIN,URINE NEGATIVE (NEGATIVE); COLOR,URINE YELLOW; GLUCOSE, URINE NEGATIVE (NEGATIVE); KETONES,URINE 20 mg/dL (NEGATIVE); PROTEIN,URINE NEGATIVE (NEGATIVE); URINE SPECIFIC GRAVITY 1.013; UROBILINOGEN,URINE NEGATIVE mg/dL (<2.0)
[2019-09-12 23:26] LABS: ALBUMIN 3.9 g/dL (3.5-5.0); ALKALINE PHOSPHATASE 103 U/L (38-126); ANION GAP 10 (5-19); ASPARTATE AMINO TRANSFERASE 47 U/L (14-36); BILIRUBIN,DIRECT 0.3 mg/dL (0.0-0.4); BILIRUBIN,TOTAL 0.6 mg/dL (0.2-1.3); BLOOD UREA NITROGEN 8 mg/dL (7-20); CARBON DIOXIDE 27 mmol/L (22-30); CHLORIDE 95 mmol/L (98-107); GLUCOSE 83 mg/dL (75-110); POTASSIUM 3.8 mmol/L (3.6-5.0); TOTAL PROTEIN 7.5 g/dL (6.3-8.2)
--- NOTE | 2019-09-13 00:37 | ER Document Report ---
ED General - General Chief Complaint: Leg Pain Stated Complaint: RIGHT LEG PAIN Time Seen by Provider: 09/12/19 22:21 Mode of Arrival: Ambulatory Information source: Patient Notes: patient ambulatory to [facility]. patient state she has had problems with skin infections and "black stuff coming out of her pores" patient states the same thing is now coming out of her right leg. patient states "it is not an abscess, it is probably a blood infection" patient breaths e/u, nad Initialized on 09/12/19 22:23 - per [facility] notes 29-year-old female arrived by POV with chief complaint of right facial and other skin problems including pain to her right leg. Patient was placed on clindamycin after having work-up 2 days ago. Patient left around 00 1920 minutes before I went out front in order to find her. Ashlyn PEREZ also went outside to the waiting room in order to find her. She was reportedly going outside to check on something and staff advised her to not be long because she will be seen soon. Patient return to waiting room around 00 46 in order to be evaluated. I saw this patient in triage room #3 and called Ashlyn in the room also because we had to look at the back of her calf. She had no underwear on so I got a gurdeep linen in order to cover up her pudendal and buttock area. Also patient had scratches on the right calf no obvious lesions like what she was describing with black eschar. 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 She reports in 2018 she was admitted because she had some bacteria which caused her problems requiring vancomycin IV. 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 When Ashlyn asked her a question .. the patient began speaking about "inappropriateness of being seen outside" <patient actually was in room triage 3> and then asked her "what was her question". Patient reported also" if she is not can to be treated well she will go to [facility]." TRAVEL OUTSIDE OF THE [place] IN LAST 30 DAYS: No - HPI Onset: Other - this week Onset/Duration: Sudden Quality of pain: No pain Severity: None Pain Level: Denies Associated symptoms: None Similar symptoms previously: Yes - Related Data Allergies/Adverse Reactions: No Known Allergies Allergy (Verified 09/10/19 12:29) Past Medical History - General Information source: Patient - Social History Smoking Status: Current Every Day Smoker Cigarette use (# per day): Yes Chew tobacco use (# tins/day): No Smoking Education Provided: Yes Frequency of alcohol use: Social Drug Abuse: Cocaine, Heroin, Methamphetamine, Prescription drugs Lives with: Family Family History: Reviewed & Not Pertinent Patient has suicidal ideation: No Patient has homicidal ideation: No Pulmonary Medical History: Reports: Hx Bronchitis Renal/ Medical History: Reports: Hx Ovarian Cysts. 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 I was told by nursing staff she was here 2 nights ago with bleeding from her left facial skin. She also has nasolabial fold maculopapular nodules which appear to be pustular-like acneform. Hematologic/Lymphatic: No symptoms reported Neurological/Psychological: No symptoms reported Physical Exam - Vital signs Vitals: Temp Pulse Resp BP Pulse Ox 98.1 F 114 H 20 134/105 H 100 09/12/19 22:08 09/12/19 22:08 09/12/19 22:08 09/12/19 22:08 09/12/19 22:08 - Cardiovascular Rhythm: Tachycardia Heart sounds: Normal auscultation Murmur: No Friction rub: No Ankul's crunch: No - Abdominal Inspection: Normal Distension: No distension Bowel sounds: Normal Tenderness: Nontender Organomegaly: No organomegaly - Genitourinary External exam: Normal - With Ashlyn in room as I was handing her a towel after she pulled down pants with no underwear. - Back Back: Normal - Extremities General upper extremity: Normal inspection General lower extremity: Tender - Right calf on palpation patient reports she has pain running from her right posterior gluteal area down the posterior thigh and posterior calf to her foot Course - Vital Signs Vital signs: Temp Pulse Resp BP Pulse Ox 98.1 F 114 H 20 134/105 H 100 09/12/19 22:08 09/12/19 22:08 09/12/19 22:08 09/12/19 22:08 09/12/19 22:08 - Laboratory Result Diagrams: 09/12/19 22:40 09/12/19 22:40 Laboratory results interpreted by me: 09/12/19 09/12/19 09/12/19 22:40 22:40 22:40 Hct 35.0 L Sodium 132.4 L Chloride 95 L Creatinine 0.51 L AST 47 H ALT 55 H Urine Ketones 20 H Leukocyte Esterase Rfl TRACE H Critical Care Note - Critical Care Note Total time excluding time spent on procedures (mins): 90 Comments: I informed this patient of her lab reports and advised her to follow-up with her personal doctor Discharge - Discharge Clinical Impression: Cellulitis of face, Cocaine abuse, Drug abuse and dependence, Polysubstance abuse Hepatitis C Qualifiers: Viral hepatitis chronicity: unspecified Hepatic coma status: without hepatic coma Qualified Code(s): B19.20 - Unspecified viral hepatitis C without hepatic coma Condition: Good Disposition: HOME, SELF-CARE Additional Instructions: Follow-up with personal doctor this week and return to ER if symptoms persist or worsen; take medicines as directed encourage fluids avoid using any mind altering drugs to include cocaine methamphetamines and amphetamines marijuana alcohol cigarettes tobacco;Much of your infections may also be due to drug- induced psychosis; For 10 days: gently apply 1 teaspoon of Hibiclens mixed with 1 teaspoon of [place] Blue shampoo.. Leave on face for approximately 5 to 10 minutes then rinse off with cool water apply this same regime of medicines to other skin areas involved. You may then apply topical medications. Also take Levaquin and continue with your clindamycin for your skin lesions. Prescriptions: Chlorhexidine Gluconate [Antiseptic Skin Cleanser] 5 ml TP DAILY 10 Days #1 bottle Mupirocin [Bactroban 2% Ointment 22 gm] 1 applic TP TID #1 tube Levofloxacin [Levaquin 500 mg Tablet] 500 mg PO DAILY #10 tablet
[2019-09-13] MEDS ORDERED: LEVOFLOXACIN 750 MG/D5W RTU 750 MG/150 ML RTUPB IV ONE (01:03)
[2019-09-13] MEDS ORDERED: VANCOMYCIN HCL INJ 1000 MG VIAL ONE (01:33)
[2019-09-13 01:47] LABS: URINE BARBITURATES SCREEN NEGATIVE; URINE BENZODIAZEPINES SCREEN NEGATIVE; URINE PHENCYCLIDINE SCREEN NEGATIVE
[2019-09-13 01:48] LABS: URINE COCAINE SCREEN UNCONFIRMED POSITIVE; URINE MARIJUANA (THC) SCREEN UNCONFIRMED POSITIVE; URINE METHADONE SCREEN UNCONFIRMED POSITIVE
[2019-09-13] MEDS ORDERED: ACETAMINOPHEN 325 MG TABLET PO ONE (02:49)
[2019-09-13] MEDS ORDERED: IBUPROFEN 800 MG TABLET PO ONE (02:50)
[2019-09-13] MEDS ORDERED: LEVOFLOXACIN 500 MG TABLET PO ONE (02:59)
--- NOTE | 2019-09-13 07:32 | EKG REPORT ---
SEVERITY:- BORDERLINE ECG - SINUS TACHYCARDIA PROBABLE LEFT ATRIAL ABNORMALITY : Confirmed by: Geoff Alford MD 13-Sep-2019 07:32:04
== END 2019-09-13 03:41 | disposition home or self-care (01) ==
LOC: ER 22:04
DX: L03.211 Cellulitis of face (principal); F14.10 Cocaine abuse, uncomplicated; F19.20 Other psychoactive substance dependence, uncomplicated; B19.20 Unspecified viral hepatitis C without hepatic coma; M79.604 Pain in right leg; F17.210 Nicotine dependence, cigarettes, uncomplicated; Z86.14 Personal history of Methicillin resistant Staphylococcus aureus infection
CPT/HCPCS: 93005; 99285; 96365; 96366; 36415; 87040; 85025; 80053; 81001; 80307; 93010; J7030; J3370

== ENCOUNTER 2020-07-12 15:07 | Emergency (ER) | payer SELFPAY ==
[2020-07-12] MEDS ORDERED: ONDANSETRON 4 MG TAB.RAPDIS PO ONE (17:05)
--- NOTE | 2020-07-12 17:07 | ER Document Report ---
ED Medical Screen (RME) - General Stated Complaint: MEDICAL CLEARANCE,ETOH DETOX Time Seen by Provider: 07/12/20 17:00 Notes: Patient is a 30-year-old female who presents to the emergency department for detox. Patient reports multisubstance abuse including heroin, alcohol, and other substances. States that she recently got out of correction about 3 days ago and states that she feels she is going through withdrawals. States that she has body aches and is nauseated. Exam: Alert and oriented. No tremors noted. I have greeted and performed a rapid initial assessment of this patient. A comprehensive ED assessment and evaluation of the patient, analysis of test resu lts and completion of medical decision making process will be conducted by an additional ED providers. TRAVEL OUTSIDE OF THE [place] IN LAST 30 DAYS: No - Related Data Allergies/Adverse Reactions: No Known Allergies Allergy (Verified 09/10/19 12:29) Past Medical History Pulmonary Medical History: Reports: Hx Bronchitis Renal/ Medical History: Reports: Hx Ovarian Cysts. Denies: Hx Peritoneal Dialysis Infectious Medical History: Reports: Hx MRSA - Immunizations Hx Diphtheria, Pertussis, Tetanus Vaccination: No Physical Exam - Vital signs Vitals: Temp Pulse Resp BP Pulse Ox 97.4 F 94 23 H 100/55 L 97 07/12/20 15:17 07/12/20 15:17 07/12/20 15:17 07/12/20 15:17 07/12/20 15:17 Course - Vital Signs Vital signs: Temp Pulse Resp BP Pulse Ox 97.4 F 94 23 H 100/55 L 97 07/12/20 15:17 07/12/20 15:17 07/12/20 15:17 07/12/20 15:17 07/12/20 15:17
[2020-07-12 18:28] LABS: ABSOLUTE EOSINOPHILS # (AUTO) 0.3 10^3/uL (0.0-0.6); ABSOLUTE LYMPHOCYTES (AUTO) 3.8 10^3/uL (0.5-4.7); ABSOLUTE MONOCYTES (AUTO) 0.9 10^3/uL (0.1-1.4); ABSOLUTE NEUT (AUTO) 4.1 10^3/uL (1.7-8.2); BASOPHILS % (AUTO) 0.4 % (0-2); EOSINOPHILS % (AUTO) 3.4 % (0-6); HEMATOCRIT 34.6 % (36.0-47.0); HEMOGLOBIN 12.1 g/dL (12.0-15.5); LYMPHOCYTES % (AUTO) 41.9 % (13-45); MEAN CORPUSCULAR HEMOGLOBIN 31.4 pg (27.0-33.4); MEAN CORPUSCULAR HGB CONC 34.9 g/dL (32.0-36.0); MEAN CORPUSCULAR VOLUME 90 fl (80-97); MONOCYTES % (AUTO) 9.6 % (3-13); PLATELET COUNT 208 10^3/uL (150-450); RED BLOOD COUNT 3.85 10^6/uL (3.72-5.28); RED CELL DISTRIBUTION WIDTH 13.9 % (11.5-14.0); SEGMENTED NEUTROPHILS % (AUTO) 44.7 % (42-78); TOTAL CELLS COUNTED % (AUTO) 100 %; WHITE BLOOD COUNT 9.1 10^3/uL (4.0-10.5)
[2020-07-12 18:56] LABS: ALBUMIN 3.8 g/dL (3.5-5.0); ALKALINE PHOSPHATASE 55 U/L (38-126); ANION GAP 6 (5-19); APPEARANCE,URINE SLIGHTLY-CLOUDY; ASPARTATE AMINO TRANSFERASE 52 U/L (14-36); BILIRUBIN,DIRECT 0.2 mg/dL (0.0-0.4); BILIRUBIN,TOTAL 0.4 mg/dL (0.2-1.3); BILIRUBIN,URINE NEGATIVE (NEGATIVE); BLOOD UREA NITROGEN 13 mg/dL (7-20); CALCIUM 8.2 mg/dL (8.4-10.2); CARBON DIOXIDE 29 mmol/L (22-30); CHLORIDE 104 mmol/L (98-107); COLOR,URINE YELLOW; GLUCOSE 113 mg/dL (75-110); GLUCOSE, URINE 50 mg/dL (NEGATIVE); KETONES,URINE TRACE mg/dL (NEGATIVE); LEUKOCYTE ESTERASE,URINE TRACE (NEGATIVE); NITRITE,URINE NEGATIVE (NEGATIVE); PROTEIN,URINE 30 mg/dL (NEGATIVE); TOTAL PROTEIN 6.9 g/dL (6.3-8.2)
[2020-07-12 18:58] LABS: ACETAMINOPHEN < 10 ug/mL (10-30); ALCOHOL < 10 mg/dL (NONE DETECTED); SALICYLATE < 1.0 mg/dL (2.0-20.0)
[2020-07-12 19:09] LABS: URINE BARBITURATES SCREEN NEGATIVE; URINE BENZODIAZEPINES SCREEN NEGATIVE; URINE METHADONE SCREEN NEGATIVE; URINE PHENCYCLIDINE SCREEN NEGATIVE
[2020-07-12 19:10] LABS: URINE AMPHETAMINES SCREEN UNCONFIRMED POSITIVE; URINE COCAINE SCREEN UNCONFIRMED POSITIVE; URINE MARIJUANA (THC) SCREEN UNCONFIRMED POSITIVE
--- NOTE | 2020-07-12 20:01 | EKG REPORT ---
SEVERITY:- BORDERLINE ECG - SINUS RHYTHM PROBABLE LEFT ATRIAL ABNORMALITY : Confirmed by: Modesto Fernandez MD 12-Jul-2020 20:00:59
[2020-07-12] MEDS ORDERED: ONDANSETRON 4 MG TAB.RAPDIS ONE (20:29)
--- NOTE | 2020-07-12 20:35 | ER Document Report ---
ED Substance Abuse / Acc. OD - General Stated Complaint: MEDICAL CLEARANCE,ETOH DETOX Time Seen by Provider: 07/12/20 17:00 Notes: Patient is a 30-year-old female who presents to the emergency department for detox. Patient reports multisubstance abuse including heroin, alcohol, and other substances. States that she recently got out of assisted about 3 days ago and states that she feels she is going through withdrawals. States that she has body aches and is nauseated. Denies any suicidal ideation or homicidal ideation. TRAVEL OUTSIDE OF THE [place] IN LAST 30 DAYS: No - Related Data Allergies/Adverse Reactions: No Known Allergies Allergy (Verified 09/10/19 12:29) Past Medical History - General Information source: Patient - Social History Smoking Status: Current Every Day Smoker Family History: Reviewed & Not Pertinent Pulmonary Medical History: Reports: Hx Bronchitis Renal/ Medical History: Reports: Hx Ovarian Cysts. Denies: Hx Peritoneal Dialysis Infectious Medical History: Reports: Hx MRSA - Immunizations Hx Diphtheria, Pertussis, Tetanus Vaccination: No Review of Systems - Review of Systems Notes: REVIEW OF SYSTEMS: CONSTITUTIONAL : Denies recent illness. Denies recent unintentional weight loss. Denies fever, chills, or sweats. EENT: Denies eye, ear, throat, or mouth pain, discharge, or symptoms. Denies nasal or sinus congestion. CARDIOVASCULAR: Denies chest pain. RESPIRATORY: Denies shortness of breath, cough, congestion, difficulty breathing, or wheezing. GASTROINTESTINAL: See HPI. GENITOURINARY: Denies difficulty urinating, burning, blood in urine, urgency or frequency. MUSCULOSKELETAL: Denies neck and back pain. Denies joint pain or swelling. SKIN: Denies rash, itchiness, or lesions HEMATOLOGIC : Denies easy bruising or bleeding. LYMPHATIC: Denies swollen, painful, enlarged glands. NEUROLOGICAL: Denies no numbness or tingling denies weakness. Denies headache. Denies altered mental status. Denies alteration in speech. PSYCHIATRIC: See HPI. All other systems reviewed and negative. Physical Exam - Vital signs Vitals: Temp Pulse Resp BP Pulse Ox 97.4 F 94 23 H 100/55 L 97 07/12/20 15:17 07/12/20 15:17 07/12/20 15:17 07/12/20 15:17 07/12/20 15:17 - Notes Notes: PHYSICAL EXAMINATION: GENERAL: Appears well, healthy, well-nourished, no acute distress. HEAD: Normocephalic, atraumatic. EYES: PERRL, conjunctiva normal, all extraocular movements intact, sclera nonicteric ENT: Moist mucous membranes. NECK: Supple, no noticeable swelling, redness, rash. Normal range of motion. LUNGS: Equal breath sounds bilaterally and clear to auscultation. No wheezes rales or rhonchi. CARDIOVASCULAR: S1-S2, regular rate, regular rhythm. Radial pulses 2+, normal. ABDOMEN: Normoactive bowel sounds. Soft, nontender, no guarding, no rebound tenderness, and no masses palpated. EXTREMITIES: Normal strength and range of motion, no pitting or edema. No cyanosis. NEUROLOGICAL: Moves all extremities upon command. Strength 5/5 in all extremities. PSYCH: Normal mood, normal affect. SKIN: Warm, dry. No rash, lesions, ulcerations noted. Normal skin turgor. Course - Re-evaluation Re-evalutation: 07/12/20 Hematology is unremarkable. Chemistries are also unremarkable. LFTs are slightly elevated, most likely due to her alcohol abuse. Urinalysis is unremarkable, other than small amount of protein in her urine. There are trace leukocytes, the patient denies any dysuria. Salicylates, acetaminophen, and alcohol are unremarkable. Opiates, amphetamines, cocaine, and marijuana are all positive, which patient reports that she uses these substances. I called [facility] and the patient will walk over there on a voluntary basis. Patient is in agreement with this plan. No suicidal or homicidal ideation. Follow-up precautions were given. Verbal discharge instructions were given to the patient. They verbalized understanding. They are stable for discharge. - Vital Signs Vital signs: Temp Pulse Resp BP Pulse Ox 98.6 F 84 16 102/55 L 100 07/12/20 20:39 07/12/20 20:39 07/12/20 20:39 07/12/20 20:39 07/12/20 20:39 - Laboratory Results Result Diagrams: 07/12/20 18:11 07/12/20 18:11 Laboratory Results Interpreted: 07/12/20 07/12/20 07/12/20 18:11 18:11 18:11 Hct 34.6 L Glucose 113 H Calcium 8.2 L AST 52 H ALT 82 H Urine Protein 30 H Urine Glucose (UA) 50 H Urine Ketones TRACE H Urine Urobilinogen 2.0 H Ur Leukocyte Esterase TRACE H Urine Ascorbic Acid 40 H Salicylates < 1.0 L Acetaminophen < 10 L Critical Laboratory Results Reviewed: No Critical Results - Radiology Results Critical Radiology Results Reviewed: No Critical Results - EKG Interpretation by Me Additional EKG results interpreted by me: 07/12/20 Sinus rhythm. Rate 80. MO 182; QRS 76; QT 376; QTc 434. No ST elevations or depressions noted. Discharge - Discharge Clinical Impression: Drug abuse, Alcohol abuse Condition: Stable Disposition: HOME, SELF-CARE Additional Instructions: You were seen today in the emergency department for medical clearance. You are medically cleared to either walk to [facility]. They are expecting you.
[2020-07-12 20:40] VITALS: BP 102/55
== END 2020-07-12 20:40 | disposition home or self-care (01) ==
LOC: ER 15:07
DX: F10.10 Alcohol abuse, uncomplicated (principal); F11.10 Opioid abuse, uncomplicated; F17.200 Nicotine dependence, unspecified, uncomplicated; R52 Pain, unspecified; R11.0 Nausea; R79.89 Other specified abnormal findings of blood chemistry
CPT/HCPCS: 93005; 99284; 36415; 80307 ×4; 85025; 81025; 80053; 81001; 93010; S0119

== ENCOUNTER 2020-08-04 18:49 | Emergency (ER) | payer SELFPAY ==
--- NOTE | 2020-08-04 19:08 | ER Document Report ---
ED Medical Screen (RME) - General Chief Complaint: Rash Stated Complaint: RASH,CANT MOVE RIGHT HAND Time Seen by Provider: 08/04/20 19:06 Notes: Patient is a 30-year-old female presents emergency department with right wrist/hand twitching. Patient states that this started the day and a half ago. Patient also states that she just shot up some heroin. Patient has history of alcohol abuse. Last drink was yesterday. States that she does not think that this could be alcohol withdrawals. Exam: Right wrist twitching. I have greeted and performed a rapid initial assessment of this patient. A comprehensive ED assessment and evaluation of the patient, analysis of test results and completion of medical decision making process will be conducted by an additional ED providers. TRAVEL OUTSIDE OF THE [place] IN LAST 30 DAYS: No - Related Data Allergies/Adverse Reactions: No Known Allergies Allergy (Verified 09/10/19 12:29) Past Medical History Pulmonary Medical History: Reports: Hx Bronchitis Renal/ Medical History: Reports: Hx Ovarian Cysts. Denies: Hx Peritoneal Dialysis Infectious Medical History: Reports: Hx MRSA - Immunizations Hx Diphtheria, Pertussis, Tetanus Vaccination: No
--- NOTE | 2020-08-04 21:22 | EKG REPORT ---
SEVERITY:- NORMAL ECG - SINUS RHYTHM : Confirmed by: Geoff Alford MD 04-Aug-2020 21:22:40
[2020-08-04 21:25] LABS: ABSOLUTE EOSINOPHILS # (AUTO) 0.3 10^3/uL (0.0-0.6); ABSOLUTE MONOCYTES (AUTO) 0.7 10^3/uL (0.1-1.4); ABSOLUTE NEUT (AUTO) 3.6 10^3/uL (1.7-8.2); BASOPHILS % (AUTO) 0.6 % (0-2); TOTAL CELLS COUNTED % (AUTO) 100 %; WHITE BLOOD COUNT 7.4 10^3/uL (4.0-10.5)
[2020-08-04 21:36] LABS: ABSOLUTE LYMPHOCYTES (AUTO) 2.8 10^3/uL (0.5-4.7); EOSINOPHILS % (AUTO) 4.5 % (0-6); HEMATOCRIT 39.4 % (36.0-47.0); HEMOGLOBIN 13.3 g/dL (12.0-15.5); LYMPHOCYTES % (AUTO) 37.5 % (13-45); MEAN CORPUSCULAR HEMOGLOBIN 30.9 pg (27.0-33.4); MEAN CORPUSCULAR HGB CONC 33.9 g/dL (32.0-36.0); MEAN CORPUSCULAR VOLUME 91 fl (80-97); MONOCYTES % (AUTO) 9.1 % (3-13); PLATELET COUNT 308 10^3/uL (150-450); RED BLOOD COUNT 4.32 10^6/uL (3.72-5.28); RED CELL DISTRIBUTION WIDTH 12.9 % (11.5-14.0); SEGMENTED NEUTROPHILS % (AUTO) 48.3 % (42-78)
[2020-08-04 21:37] LABS: APPEARANCE,URINE SLIGHTLY-CLOUDY; BILIRUBIN,URINE NEGATIVE (NEGATIVE); COLOR,URINE YELLOW; GLUCOSE, URINE NEGATIVE (NEGATIVE); KETONES,URINE 20 mg/dL (NEGATIVE); LEUKOCYTE ESTERASE,URINE LARGE (NEGATIVE); NITRITE,URINE NEGATIVE (NEGATIVE); PROTEIN,URINE 30 mg/dL (NEGATIVE); URINE SPECIFIC GRAVITY 1.028
[2020-08-04 21:40] LABS: ALKALINE PHOSPHATASE 52 U/L (38-126); ASPARTATE AMINO TRANSFERASE 35 U/L (14-36); BILIRUBIN,DIRECT 0.1 mg/dL (0.0-0.4); BILIRUBIN,TOTAL 0.3 mg/dL (0.2-1.3); BLOOD UREA NITROGEN 11 mg/dL (7-20); CALCIUM 9.1 mg/dL (8.4-10.2); GLUCOSE 93 mg/dL (75-110); POTASSIUM 4.6 mmol/L (3.6-5.0); TOTAL PROTEIN 7.3 g/dL (6.3-8.2)
[2020-08-04 21:44] LABS: CARBON DIOXIDE 32 mmol/L (22-30); CHLORIDE 98 mmol/L (98-107)
[2020-08-04 21:49] LABS: URINE BARBITURATES SCREEN NEGATIVE; URINE COCAINE SCREEN NEGATIVE; URINE METHADONE SCREEN NEGATIVE; URINE PHENCYCLIDINE SCREEN NEGATIVE
[2020-08-04 21:59] LABS: ACETAMINOPHEN < 10 ug/mL (10-30); ALCOHOL < 10 mg/dL (NONE DETECTED); ANION GAP 4 (5-19); SALICYLATE < 1.0 mg/dL (2.0-20.0)
[2020-08-04 22:05] LABS: URINE BENZODIAZEPINES SCREEN UNCONFIRMED POSITIVE; URINE MARIJUANA (THC) SCREEN UNCONFIRMED POSITIVE
[2020-08-05 02:34] VITALS: BP 130/75
--- NOTE | 2020-08-05 06:12 | ER Document Report ---
ED Skin Rash/Insect Bite/Abscs - General Chief Complaint: rash Stated Complaint: RASH,CANT MOVE RIGHT HAND Time Seen by Provider: 08/04/20 19:06 Primary Care Provider: [facility] [Provider [facility]] - Follow up as needed [facility] [Provider [facility]] - Follow up as needed [facility] [Provider Group] - Follow up as needed DARIEN PARKER DO [ACTIVE STAFF] - Follow up as needed Mode of Arrival: Ambulatory Information source: Patient Notes: 30-year-old female presents to ED for complaint of rash to her back up into her hair that has been there for a long time. She states that for the last day and a half she cannot move her right hand and wrist and they were twitching. She states she does not know why she has this rash on her back and she does not know why her hair is growing so funny. It has been this way for several weeks but she has not been to see anybody. She states the hand just started yesterday. She states she had a last alcohol yesterday and she shot up with him before coming into the emergency room but that is not why her hand is acting the way it is. She states she does not shoot up in the arm that is twitching. While she is tell me she cannot use the right hand she is moving the hand and wrist all around. I have ordered an x-ray on this right hand. Constitutional: Negative for fever. HENT: Negative for sore throat. Eyes: Negative for visual changes. Cardiovascular: Negative for chest pain. Respiratory: Negative for shortness of breath. Gastrointestinal: Negative for abdominal pain, vomiting or diarrhea. Genitourinary: Negative for dysuria. Musculoskeletal: Mild swelling to the right hand. She states she cannot move it or use it as she is moving at all around. Skin: Patient has several small erythematous active scattered over her back and neck. They appear to be insect bites. Neurological: Negative for headaches, weakness or numbness. 10 point ROS negative except as marked above and in HPI. VITAL SIGNS: Within normal limits. GENERAL: No acute distress, non-toxic appearance. HEAD: Patient states she is losing her hair over the last several weeks and does not know why she is also losing her hair EYES: PERRLA, EOMI, conjunctiva normal, no discharge. EARS: Hearing grossly intact. NOSE: Normal. THROAT: Oropharynx is normal. NECK: Normal range of motion, no tenderness, supple, no lymphadenopathy, No adenopathy, no JVD. CHEST: Clear breath sounds bilaterally. No wheezes, rales, or rhonchi. CARDIAC: Regular rate and rhythm. S1 and S2, without murmurs, gallops, or rubs. VASCULAR: No Edema. Peripheral pulses normal and equal in all extremities. ABDOMEN: Normal and soft with no tenderness, no masses or pulsatile masses. GASTROINTESTINAL: Bowel sounds normal GENITOURINARY: Normal, No tenderness LYMPATHTIC: No lymphadenopathy noted. MUSCULOSKELETAL: Mild edema to the right hand and states she cannot use her right hand. NEUROLOGICAL: Alert and oriented x 3. No focal sensory or strength deficits. Speech normal. Follows commands appropriately. PSYCHIATRIC: Normal Affect, judgement and mood. SKIN: Patient has small papules to the back that appear to be insect bites TRAVEL OUTSIDE OF THE [place] IN LAST 30 DAYS: No - HPI Patient complains to provider of: Skin rash/lesion, Other - States she cannot move her right hand Onset: Other - Rashes been for several weeks to a month, losing her hair has been for several weeks to months, the decreased use of right hand started yesterday Onset/Duration: Gradual Quality of pain: Throbbing Severity: Moderate Pain Level: 4 Skin Character: Papules - Back Quality of rash: Itchy Identify cause: No Exacerbated by: Other - She is having decreased range of motion to her right hand. She states she cannot use her right hand Relieved by: Denies Similar symptoms previously: No Recently seen / treated by doctor: No - Related Data Allergies/Adverse Reactions: Sulfa (Sulfonamide Antibiotics) Allergy (Verified 08/05/20 06:41) Past Medical History - General Information source: Patient - Social History Smoking Status: Current Every Day Smoker Chew tobacco use (# tins/day): No Frequency of alcohol use: Heavy Drug Abuse: Cocaine, Heroin, Marijuana, Methamphetamine Lives with: Spouse/Significant other Family History: Reviewed & Not Pertinent Patient has suicidal ideation: No Patient has homicidal ideation: No - Past Medical History Cardiac Medical History: Reports: None Pulmonary Medical History: Reports: Hx Bronchitis EENT Medical History: Reports: None Neurological Medical History: Reports: None Endocrine Medical History: Reports: None Renal/ Medical History: Reports: Hx Ovarian Cysts Malignancy Medical History: Reports: None GI Medical History: Reports: None Musculoskeletal Medical History: Reports None Skin Medical History: Reports Hx Cellulitis, Reports Hx MRSA Psychiatric Medical History: Reports: None Traumatic Medical History: Reports: None Infectious Medical History: Reports: Hx MRSA Surgical Hx: Negative Past Surgical History: Reports: None - Immunizations Hx Diphtheria, Pertussis, Tetanus Vaccination: No Physical Exam - Vital signs Vitals: Temp 98.6 F 08/05/20 02:12 Course - Vital Signs Vital signs: Temp Pulse Resp BP Pulse Ox 97.9 F 89 16 130/75 H 100 08/05/20 02:33 08/05/20 02:33 08/05/20 02:33 08/05/20 02:33 08/05/20 02:33 - Laboratory Results Result Diagrams: 08/04/20 21:11 08/04/20 21:11 Laboratory Results Interpreted: 08/04/20 08/04/20 21:11 21:11 Sodium 134.4 L Carbon Dioxide 32 H Anion Gap 4 L ALT 38 H Urine Protein 30 H Urine Ketones 20 H Urine Urobilinogen 2.0 H Ur Leukocyte Esterase LARGE H Salicylates < 1.0 L Acetaminophen < 10 L Critical Laboratory Results Reviewed: No Critical Results - Radiology Results Critical Radiology Results Reviewed: No Critical Results Discharge - Discharge Clinical Impression: Pain in right hand, Rash and nonspecific skin eruption UTI (urinary tract infection) Qualifiers: Urinary tract infection type: site unspecified Hematuria presence: without hematuria Qualified Code(s): N39.0 - Urinary tract infection, site not specified Disposition: HOME, SELF-CARE Additional Instructions: URINARY TRACT INFECTION: Your evaluation indicates that you have a urinary tract infection. This is due to germs growing in the bladder. This is a common problem. This infection usually responds quickly to antibiotics. Your antibiotic should be taken exactly as prescribed. Drink plenty of fluids -- three to four quarts a day. Occasionally, a bladder anesthetic will be prescribed to help stop the feel ing of urgency until the antibiotic has a chance to clear the infection. This may cause your urine to be dark orange. Certain urine infections require a culture. If the doctor obtained a culture, the results will be back in two days. You should call to see if a change in treatment is needed. A repeat urinalysis after you finish treatment is often recommended. The physician will let you know if further testing is required. Call the doctor if you develop fever, chills, flank pain, inability to urinate, or blood in the urine. You have decreased range of motion to your right hand. I have done an x-ray of the right hand to ensure there is no injury to this hand. I will give you the name and number for orthopedics to follow-up further evaluate this decreased use of your right hand. Nonspecific rash to your back. There are many benign causes for rash to your back. There is no signs of any infection at this time. You state you have a loss of some of your hair. States this has slowly been increasing over the last month. I have given you the name and number for a de rmatologist for you to follow-up to determine the cause of this alopecia NITROFURANTOIN (MACRODANTIN, MACROBID): You have received a prescription for nitrofurantoin (Macrodantin). This antibiotic is used for urinary tract infections. Women who are or nursing should notify the physician before taking this medicine. If you have ever had a problem caused by this medication in the past, be sure the physician is aware of it. Common side effects of this medicine include nausea, vomiting, or decreased appetite. Notify your physician if these side effects become severe. Immediately stop this medicine and call the physician if you develop cough, shortness of breath, chest pain, weakness, jaundice (yellow color of the skin and whites of the eyes), or a skin rash. FOLLOW-UP CARE: If you have been referred to a physician for follow-up care, call the physicians office for an appointment as you were instructed or within the next two days. If you experience worsening or a significant change in your symptoms, notify the physician immediately or return to the Emergency Department at any time for re-evaluation. Prescriptions: Nitrofurantoin Monohyd/M-Cryst [Macrobid 100 mg Capsule] 100 mg PO BID #14 cap Referrals: [facility] [Provider [facility]] - Follow up as needed DARIEN PARKER DO [ACTIVE STAFF] - Follow up as needed [facility] [Provider [facility]] - Follow up as needed [facility] [Provider [facility]] - Follow up as needed
[2020-08-05] MEDS ORDERED: ACETAMINOPHEN 325 MG TABLET PO ONE (06:13)
[2020-08-05] MEDS ORDERED: NITROFURANTOIN MONOHYD/M-CRYST 100 MG CAPSULE PO ONE (06:24)
--- NOTE | 2020-08-05 06:47 | RADIOLOGY REPORT (SQ) ---
EXAM DESCRIPTION: XR HAND 3 OR MORE VIEWS COMPLETED DATE/TME: 08/05/2020 06:20 CLINICAL HISTORY: 30 years, Female, Pain swelling COMPARISON: None. NUMBER OF VIEWS: 3 TECHNIQUE: 3 view right hand LIMITATIONS: None. FINDINGS: Negative for acute fracture or dislocation. Mild diffuse soft tissue swelling. No soft tissue gas. IMPRESSION: No acute osseous abnormality copyright 2010 [email or web address]- All Rights Reserved
--- OUTSIDE RECORDS SUMMARY | 2020-08-07 09:18 | XMS REPORT ---
:1990 [facility] [address] [place] [address] Care Team Providers Name Role Phone TREVER FAUSTINC Attending Clinician Unavailable JS Attending Clinician Unavailable Olya CASTREJON Attending Clinician Unavailable Allergies, Adverse Reactions, Alerts This patient has no known allergies or adverse reactions. Medications Ordered Filled Start Stop Current Ordering Indication Dosage Frequency Signature Comments Components Medication Medication Date Date Medication? Clinician (SIG) Name Name Clindamycin Yes Felicia 300 Four Times Hcl 01-17 Pa-C Daily (Cleocin 00:00: Wardrobe Supervisor Cap*) 150 00 Mg Cap Mupirocin Yes Felicia 1 Twice Per (Bactroban 01-17 Pa-C Day 2% Cream*) 00:00: Wardrobe Supervisor 15 Gm Tube 00 Trimethopri Yes Felicia 2 Twice Per m/Sulfameth 09-25 Pa-C Day oxazole 00:00: Wardrobe Supervisor (Bactrim 00 Ds*) 800/160 Mg Tab Cephalexin Yes Felicia 500 Four Times (Keflex*) 09-25 Pa-C Daily 500 Mg 00:00: Wardrobe Supervisor Capsule 00 Ibuprofen Yes Edward H 600 Every 8 (Motrin 01-05 Pa-C Erica Hours as Tab*) 600 00:00: needed for Mg Tablet 00 Fever Or Pain Cephalexin 2014- No Edward H 500 Four Times (Keflex*) 01-05 Pa-C Maldonado Daily 500 Mg 00:00: 00:00 Capsule 00 :00 Trimethopri 2014- No Edward H 2 Twice Per m/Sulfameth 01-05 Pa-C Maldonado Day oxazole 00:00: 00:00 (Bactrim 00 :00 Ds*) 800/160 Mg Tab Ibuprofen Yes Baljinder A 600 Every 8 (Motrin 5-24 Robin [place] Hours for Tab*) 600 00:00: Pain Mg Tablet 00 Problems Condition Condition Condition Status Onset Resolution Last Treatin g Comments Name Details Category Date Date Treatment Clinician Date Abscess Problem Active 01-17 17:12: 00 Alcohol Problem Active abuse 09-25 20:59: 00 Dermatitis Problem Active 09-25 20:59: 00 Drug abuse Problem Active 09-25 20:59: 00 Alcohol Problem Active abuse 09-25 20:59: 00 Dermatitis Problem Active 09-25 20:59: 00 Drug abuse Problem Active 09-25 20:59: 00 Thrombophleb Problem Active itis 01-05 15:22: 00 Thrombophleb Problem Active itis 01-05 15:22: 00 Hand Problem Active contusion 12-02 19:15: 00 Hand Problem Active contusion 12-02 19:15: 00 Procedures This patient has no known procedures. Results Test Description Test Time Test Comments Text Results Atomic Results Result Comments Sodium Level 2017-09-25 23:33:00 Test Item Value Reference Range Comments Sodium blood (test code = 834317175) 142 137-144 Potassium Yrpnm5561-83-99 23:33:00 Test Item Value Reference Range Comments Potassium blood (test code = 641058248) 4.2 3.1-5.1 Chloride Qcsyi9729-87-09 23:33:00 Test Item Value Reference Range Comments Chloride blood (test code = 737590446) 109 101-110 Carbon Dioxide Fuwtz0700-15-00 23:33:00 Test Item Value Reference Range Comments Carbon dioxide (test code = 71574652) 21 22-29 Glucose Fcymb3114-93-00 23:33:00 Test Item Value Reference Range Comments Glucose blood (test code = 92062900) 78 70-105 Blood Urea Tcdftfpv4121-77-55 23:33:00 Test Item Value Reference Range Comments BUN (test code = 774317671) 9 7.0-18.7 Smtdhhpvas9771-02-18 23:33:00 Test Item Value Reference Range Comments Creatinine blood (test code = 512670108) 0.71 0.57-1. 11 Anion Hxp4097-26-79 23:33:00 Test Item Value Reference Range Comments Anion gap measurement (test code = 25474292) 16 7-1 6 Calcium Kkjhn7938-32-55 23:33:00 Test Item Value Reference Range Comments Calcium (test code = 83086098) 9.1 8.4-10.2 Total Djepwtifk2946-46-74 23:33:00 Test Item Value Reference Range Comments Total bilirubin (test code = PZT4486) 0.1 0.1-1.2 Total Ttyuczv0757-02-52 23:33:00 Test Item Value Reference Range Comments Total protein blood (test code = 2885-2) 7.5 6.0-8.3 Qdyetne3070-13-72 23:33:00 Test Item Value Reference Range Comments Albumin (test code = HOT6538) 3.9 3.2-5.2 Uiakeetx4005-70-05 23:33:00 Test Item Value Reference Range Comments Plasma globulin measurement (mass/volume) (test code = 3.6 73328-7) Albumin/Globulin Redhj7075-63-15 23:33:00 Test Item Value Reference Range Comments Albumin to globulin ratio (test code = 149664) 1.1 1 .1-2.5 Aspartate Amino Transf (AST/SGOT)2017-09-25 23:33:00 Test Item Value Reference Range Comments AST (SGOT) ser/plas (test code = 81792084) 36 5-34 Alkaline Fbtfulrowax1230-38-45 23:33:00 Test Item Value Reference Range Comments Alkaline phosphatase (test code = 99470905) 46 40-1 50 Alanine Aminotransferase (ALT/SGPT)2017-09-25 23:33:00 Test Item Value Reference Range Comments ALT (SGPT) ser/plas (test code = 1742-6) 47 0-55 Apewih3554-15-26 23:33:00 Test Item Value Reference Range Comments Lipase ser/plas (test code = 3040-3) 5 7-78 Ethyl Alcohol Ddpjg0106-45-29 23:33:00 Test Item Value Reference Range Comments Alcohol (ethanol) assay (test code = APH4100) 53 0- 10 Acetaminophen Hlhri2515-28-47 23:33:00 Test Item Value Reference Range Comments Acetaminophen level (test code = >3 10-30 Therapeutic Concentration: CNF2534) 10-30 ug/mL Toxi c Concentration: > 200 ug/mL Salicylate Level mg/hT5211-17-93 23:33:00 Test Item Value Reference Range Comments Salicylate level (test code = >5.0 -30 erapeutic Concentration: 15-30 62311609) mg/dL Toxic Conc entration: 31-60 mg/dL Lethal Con centration: >60 mg/dL White Blood Asbrb0531-75-58 23:33:00 Test Item Value Reference Range Comments Blood leukocytes automated count (number/volume) (test 7.9 3.6-11.1 code = 6690-2) Red Blood Vjgah4752-33-00 23:33:00 Test Item Value Reference Range Comments Blood erythrocytes automated count (number/volume) 4.45 3.69-4.88 (test code = 789-8) Ynnsqgtovw9928-46-13 23:33:00 Test Item Value Reference Range Comments Blood hemoglobin measurement (mass/volume) (test code 14.3 11.4-14.4 = 718-7) Tirapvgyep6721-80-03 23:33:00 Test Item Value Reference Range Comments Automated blood hematocrit (volume fraction) (test 42.8 33.3-41.4 code = 4544-3) Mean Corpuscular Qjrubp0828-31-27 23:33:00 Test Item Value Reference Range Comments Automated erythrocyte mean corpuscular volume (test 96.2 79.3-94.8 code = 787-2) Mean Corpuscular Rwukhzhtcr3544-27-80 23:33:00 Test Item Value Reference Range Comments Automated erythrocyte mean corpuscular hemoglobin 32.2 26.8-33.2 (mass per erythrocyte) (test code = 785-6) Mean Corpuscular Hemoglobin Zxymgza7636-10-16 23:33:00 Test Item Value Reference Range Comments Automated erythrocyte mean corpuscular hemoglobin 33.5 33.5-35.5 concentration measurement (mass/volume) (test code = 786-4) Red Cell Distribution Dgmxm9855-98-83 23:33:00 Test Item Value Reference Range Comments Automated erythrocyte distribution width ratio (test 12.6 12.0-15.1 code = 788-0) Platelet Iriri1575-25-17 23:33:00 Test Item Value Reference Range Comments Automated blood platelet count (count/volume) (test 258 165-353 code = 777-3) Mean Platelet Qssjgs8266-15-89 23:33:00 Test Item Value Reference Range Comments Automated blood platelet mean volume measurement (test 6.2 7.5-10.6 code = 68308-2) Neutrophils (%) (Auto)2017-09-25 23:33:00 Test Item Value Reference Range Comments Automated blood neutrophil count as percentage of 39.9 43.2-71.5 total leukocytes (test code = 770-8) Lymphocytes (%) (Auto)2017-09-25 23:33:00 Test Item Value Reference Range Comments Automated blood lymphocyte count as percentage of 46.4 16.8-43.4 total leukocytes (test code = 736-9) Monocytes (%) (Auto)2017-09-25 23:33:00 Test Item Value Reference Range Comments Automated blood monocyte count as percentage of total 9.0 4.6-12.4 leukocytes (test code = 5905-5) Eosinophils (%) (Auto)2017-09-25 23:33:00 Test Item Value Reference Range Comments Automated blood eosinophil count as percentage of 3.4 0.7-7.8 total leukocytes (test code = 713-8) Basophils (%) (Auto)2017-09-25 23:33:00 Test Item Value Reference Range Comments Automated blood basophil count as percentage of total 1.3 0.2-1.2 leukocytes (test code = 706-2) Neutrophils # (Auto)2017-09-25 23:33:00 Test Item Value Reference Range Comments Blood neutrophils automated count (number/volume) 3.2 1.9-7.2 (test code = 751-8) Lymphocytes # (Auto)2017-09-25 23:33:00 Test Item Value Reference Range Comments Automated blood lymphocyte count (number/volume) (test 3.7 1.1-2.7 code = 731-0) Monocytes # (Auto)2017-09-25 23:33:00 Test Item Value Reference Range Comments Blood monocytes automated count (number/volume) (test 0.7 0.3-0.8 code = 742-7) Eosinophils # (Auto)2017-09-25 23:33:00 Test Item Value Reference Range Comments Automated blood eosinophil count (test code = 711-2) 0.3 0.0-0.5 Basophils # (Auto)2017-09-25 23:33:00 Test Item Value Reference Range Comments Automated blood basophil count (count/volume) (test 0.1 0.0-0.1 code = 704-7) DXZNMESBK7482-89-35 21:10:[address] [address] Patient: CHELSEA WEEKS : 1990 Sex: F Address: [address] [place] [address] [place] [address] Unit #: [id number] REQ SEQ #: [id number] Location: Room #: Ordering: FELICIA FAUSTIN PA-C Diagnosis: DETOX/DRUG AND ALCOHOL WIT HDRAWAL/SKIN INFECTION Chest films dated September 25, 2017. HISTORY: Medical clearance. Drug and alcohol withdrawal. PA and lateral views (2 views) of the chest are obtained. No previous films are currently availablefor comparison. The heart size is normal. The lung hernandez are clear. The visualized bones are normal. Impression: Normal PA and lateral views (2 views ) of the chest. Final report electronically signed by: Kim Graff MD Signed by: KIM GRAFF JR, MD 09/25/17 [id number] cc: KIM GRAFF JR, MDFELICIA PA-CUrine Kbkpg3740-55-58 20:15:00 Test Item Value Reference Range Comments Urine color determination (test code = 5778-6) YELLOW Urine Xjsvfddzic6177-43-76 20:15:00 Test Item Value Reference Range Comments Urine clarity determination (test code = 46722-3) CLEAR Urine Specific Sofzzdt5727-41-91 20:15:00 Test Item Value Reference Range Comments Specific gravity of Urine by Refractometry automated 1.022 1.005-1.030 (test code = 28672-4) Urine bP5884-61-38 20:15:00 Test Item Value Reference Range Comments Urine pH (test code = 2756-5) 5.5 4.7-8.0 Urine JOB6949-08-22 20:15:00 Test Item Value Reference Range Comments Urine leukocyte esterase detection by automated test 4-15 0-3 strip (test code = 43423-7) Urine Jvciuls4799-15-40 20:15:00 Test Item Value Reference Range Comments Urine nitrite detection (test code = 87842-6) NEGATIVE NE GATIVE Urine Ggvtfuj6443-52-17 20:15:00 Test Item Value Reference Range Comments Urine protein detection (test code = 2887-8) TRACE NEG -TRACE Urine Glucose (UA)2017-09-25 20:15:00 Test Item Value Reference Range Comments Urine glucose detection (test code = 2349-9) NEGATIVE NEG ATIVE Urine Obdvojh5126-12-39 20:15:00 Test Item Value Reference Range Comments Urine ketones detection (test code = 49029-3) TRACE NE GATIVE Urine Pqroiyqhlfqj2019-58-13 20:15:00 Test Item Value Reference Range Comments Urine urobilinogen measurement (test code = 42203-6) 2.0 NORMAL Urine Pkutvddta4909-89-77 20:15:00 Test Item Value Reference Range Comments Urine bilirubin detection (test code = 1977-8) NEGATIVE N EGATIVE Urine Wdimm0957-45-96 20:15:00 Test Item Value Reference Range Comments Urine blood detection (test code = 24472-7) NEGATIVE NEGA TIVE Urine Culture Yrhrygton3629-85-41 20:15:00 Test Item Value Reference Range Comments UA + culture (test code = 19264-9) YES Urine Squamous Epithelial Psueb0706-53-24 20:15:00 Test Item Value Reference Range Comments Urine squamous epithelial cells detection by automated 6-20 0-3 method (test code = 04728-8) Urine Gvhelpqa5964-84-27 20:15:00 Test Item Value Reference Range Comments Automated urine bacteria count (number/volume) (test 1+ <1 code = 75887-1) Urine Ltjih1886-65-07 20:15:00 Test Item Value Reference Range Comments Mucus detection in urine sediment by light microscopy SMALL (test code = 8247-9) Urine Amphetamine/Nmpfrlkdepiqism1942-46-71 20:15:00 Test Item Value Reference Range Comments Urine amphetamine+methamphetamine detection (test Negative Thhld>=1000 code = 48378-8) Urine Bzkzldoifgwth2895-34-88 20:15:00 Test Item Value Reference Range Comments Urine Buprenorphine (test code = Urine Positive Thhld>=5 Buprenorphine) Urine Wylgbbwotpmb8926-00-78 20:15:00 Test Item Value Reference Range Comments Urine barbiturates detection (test code = 3377-9) Negative Thhld>=200 Urine Benzodiazepines Hdjydu5629-12-07 20:15:00 Test Item Value Reference Range Comments Urine benzodiazepines detection (test code = Positive Thh ld>=200 3390-2) Urine THC Iqwanoywwvkykc8126-14-45 20:15:00 Test Item Value Reference Range Comments Urine orfyi-1-gtlehdfcygsdmodgobrw (THC) detection Positive Thhld>=50 (test code = 3426-4) Urine Cocaine Ulltyx1582-60-74 20:15:00 Test Item Value Reference Range Comments Urine cocaine detection (test code = 3397-7) Positive Thh ld>=300 Urine Methadone Xexuvw4444-64-29 20:15:00 Test Item Value Reference Range Comments Urine methadone detection (test code = 3773-9) Negative T hhld>=300 Urine Opiates Hkhysb3666-50-13 20:15:00 Test Item Value Reference Range Comments Urine opiates detection (test code = 3879-4) Negative Thh ld>=300 Urine Oxycodone Mqzlhx9491-71-16 20:15:00 Test Item Value Reference Range Comments Urine oxycodone detection Negative Thhld>=100 This a ssay is intended as a (test code = 34747-7) preliminar y screen. A more specific alterna tive chemical method must be u sed in order to obtain a confirm ed result. Gas chromatography s pectrometry (GC/MS) is the p referred confirmatory met hod and can be performed by a r eferedee laboratory upon request. Clinical conside ration and professional dinah gement should be applied to any d rug of abuse test result, par ticularly when preliminary resu lts are used. Encounters Start End Encounter Admission Attending Care Care Encounter Date/Time Date/Time Type Type Clinicians Facility Department ID 2018-01-17 2018-01-17 Emergency ED [facility]IS[facility] MANAGER, [facility] [id number] 16:39:00 17:25:00 FELICIA 02 2017-09-25 2017-09-25 Emergency ED [facility] [id number] 19:35:00 19:35:00 JESUS 66 2015-01-05 2015-01-05 Emergency ED [facility] [id number] 12:00:00 15:28:00 BALJINDER 78 2013-12-02 2013-12-02 Emergency ED [facility] [id number] 16:58:00 19:31:00 BALJINDER 14 Immunizations Ordered Immunization Filled Immunization Date Status Commen ts Refusal Reason Name Name Vaccination Unknown Completed Payers Payer Name Policy Type Policy Number Effective Date Expiration D ate Social History This patient has no known social history. Vital Signs Vital Name Observation Time Observation Value Comments WEIGHT 2018-01-17 16:39:00 55.1000 kg HEIGHT 2018-01-17 16:39:00 152.032773 cm WEIGHT 2017-09-25 19:35:00 59.5000 kg HEIGHT 2017-09-25 19:35:00 154.548973 cm WEIGHT 2015-01-05 12:00:00 60 kg WEIGHT 2013-12-02 16:58:00 62 kg
== END 2020-08-05 07:09 | disposition home or self-care (01) ==
LOC: ER 18:49
DX: R21 Rash and other nonspecific skin eruption (principal); M79.641 Pain in right hand; R60.0 Localized edema; N39.0 Urinary tract infection, site not specified; F17.200 Nicotine dependence, unspecified, uncomplicated; F14.10 Cocaine abuse, uncomplicated; F11.10 Opioid abuse, uncomplicated; F12.10 Cannabis abuse, uncomplicated; F15.10 Other stimulant abuse, uncomplicated; Z86.14 Personal history of Methicillin resistant Staphylococcus aureus infection; Z88.2 Allergy status to sulfonamides
CPT/HCPCS: 93005; 99285; 36415; 80307 ×4; 84703; 85025; 80053; 81001; 73130; 93010; J8499